=== PATIENT | female | born 1960 | race Caucasian/White ===

== ENCOUNTER 2017-07-20 17:22 | Emergency (ER) | payer OTHER ==
[~2017-07-20] VITALS: Ht 160 cm; Wt 81.7 kg
[~2017-07-20 17:22] MED LIST: ARIP10 PO; ARIP15 PO; ASPI81CH PO; ATOR40TA PO; ATOR80 PO; Arthritis Pain650 M1 PO; Aspirin EC81 MG PO; BENZ100A PO; BISA5EC PO; CHOL10002 PO; CLOP75 PO; CYCL10 PO; Cyclobenzaprine5 MG PO; DOCSEN PO; DOCU100 PO; DULO30 PO; DULO60 PO; Dilantin PO; ERGO400 PO; ESTR2 PO; Estradiol1 MG PO; GABA300 PO; HYDACE10B PO; HYDACE5 PO; HYDACE5325 PO; HYDR1TAB94 PO; IBUP600 PO; IBUP800; LISI20 PO; LISI5 PO; MARIJUANA; MEDR2.5 PO; MEDR5 PO; Mucinex600 MG PO; NAPR220 PO; NAPR250 PO; Norco 5-325 Ta1 EACH PO; Omeprazole20 M1 PO; PHENY100ER PO; Sudogest60 MG PO; Ultram50 MG PO; VITAMIN D32000 UNIT PO; Zithromax250 MG PO
[2017-07-20] MEDS ORDERED: Prednisone20 MG PO (17:41)
[2017-07-20] MEDS ORDERED: Percocet 5-3251 EACH PO (17:41)
[2018-03-04] MEDS ORDERED: Percocet 5-3251 EACH (11:29)
[2018-03-04] MEDS ORDERED: Abilify5 MG (11:30)
== END 2017-07-20 18:07 | disposition home or self-care (01) ==
LOC: ER 17:22
DX: M54.5 Low back pain (principal); G89.29 Other chronic pain; Z79.899 Other long term (current) drug therapy; Z79.82 Long term (current) use of aspirin; Z79.52 Long term (current) use of systemic steroids; Z86.73 Personal history of transient ischemic attack (TIA), and cerebral infarction without residual deficits; Z87.891 Personal history of nicotine dependence
CPT/HCPCS: 96372; 99283; J1885

== ENCOUNTER → 2017-08-13 | Outpatient (CLI) | payer OTHER ==
[~2017-08-13] MED LIST changes: +Percocet 5-3251 EACH PO; +Prednisone20 MG PO
[2017-08-15 13:21] LABS: HPV Genotype 16 Not Detected (NOTDET); HPV Genotype 18 Not Detected (NOTDET)
[2017-08-20 13:05] LABS: HPV High Risk Other Not Detected (NOTDET)
== END | disposition home or self-care (01) ==
LOC: LAB SHORT 16:40 → LAB 16:40
PROVIDERS: Obstetrics & Gynecology Gynecology
DX: Z12.4 Encounter for screening for malignant neoplasm of cervix (principal)
CPT/HCPCS: 87624; G0123

== ENCOUNTER 2017-09-03 08:22 | Emergency (ER) | payer OTHER ==
[~2017-09-03] VITALS: Ht 160 cm; Wt 80.7 kg
== END 2017-09-03 09:08 | disposition home or self-care (01) ==
LOC: ER 08:22
DX: G56.00 Carpal tunnel syndrome, unspecified upper limb (principal); Z79.899 Other long term (current) drug therapy; Z79.82 Long term (current) use of aspirin; Z79.52 Long term (current) use of systemic steroids; Z86.73 Personal history of transient ischemic attack (TIA), and cerebral infarction without residual deficits; F17.210 Nicotine dependence, cigarettes, uncomplicated
CPT/HCPCS: 99281

== ENCOUNTER 2017-11-29 16:35 | Emergency (ER) | payer OTHER ==
[~2017-11-29] VITALS: Ht 162.6 cm; Wt 77.1 kg
[2017-11-29 17:50] LABS: BASOPHILS ABSOLUTE AUTO 0.04 K/mm3 (0.00-0.23); BASOPHILS PERCENT AUTO 0 % (0-2); EOSINOPHILS ABSOLUTE AUTO 0.02 K/mm3 (0.00-0.68); EOSINOPHILS PERCENT AUTO 0 % (0-6); Hematocrit 42.8 % (33.0-51.0); Hemoglobin 14.1 g/dL (11.5-16.0); IMMATURE GRAN ABSOLUTE AUTO 0.04 K/mm3 (0.00-0.10); IMMATURE GRAN PERCENT AUTO 0 % (0-1); LYMPHOCYTES ABSOLUTE AUTO 1.88 K/mm3 (0.84-5.20); LYMPHOCYTES PERCENT AUTO 16 % (21-46); MONOCYTES PERCENT AUTO 11 % (4-13); Mean Corpuscular HGB 30.3 pg (26.0-34.0); Mean Corpuscular HGB Conc 32.9 g/dL (31.5-36.5); Mean Corpuscular Volume 92 fL (80-100); Mean Platelet Volume 9.9 fL (9.1-12.4); NEUTROPHILS ABSOLUTE AUTO 8.55 K/mm3 (1.96-9.15); NEUTROPHILS PERCENT AUTO 72 % (41-73); Platelet Count 404 K/mm3 (150-400); RDW Coefficient Variation 15.1 % (11.7-14.2); RDW Standard Deviation 51.7 fL (35.1-46.3); Red Blood Cell Count 4.65 M/mm3 (3.80-5.20); White Blood Cell Count 11.83 K/mm3 (4.00-11.30)
[2017-11-29 18:10] LABS: Alanine Aminotransfer (ALT/SGP 48 U/L (12-78); Albumin, Blood 3.1 g/dL (3.4-5.0); Albumin/Globulin Ratio 0.9 (0.8-1.8); Alk Phos 117 U/L (50-136); Anion Gap 5 mmol/L (6-16); Aspartate Aminotrans (AST/SGOT 47 U/L (12-37); Bilirubin, Total 0.3 mg/dL (0.1-1.0); Blood Urea Nitrogen 28 mg/dL (8-24); Bun/Creatinine Ratio 17.2 (12.0-20.0); CO2, Blood 30 mmol/L (21-32); Calcium, Blood 8.3 mg/dL (8.5-10.1); Chloride, Blood 105 mmol/L (98-108); Creatinine, Blood 1.63 mg/dL (0.40-1.00); Dilantin (Phenytoin), Total 10.8 ug/mL (10.0-20.0); Ethanol (Alcohol), Blood, Med <3 mg/dL; Globulin, Blood 3.6 g/dL (2.2-4.0); Glomerular Filtration Rate 35 (60-); Glucose, Blood 85 mg/dL (70-99); Potassium, Blood 4.6 mmol/L (3.5-5.5); Sodium, Blood 140 mmol/L (136-145); Total Protein, Blood 6.7 g/dL (6.4-8.2); Troponin I <0.015 ng/mL (0.000-0.040)
== END 2017-11-29 18:29 | disposition home or self-care (01) ==
LOC: ER 16:35
PROVIDERS: Emergency Medicine
DX: E86.0 Dehydration (principal); R55 Syncope and collapse; G40.909 Epilepsy, unspecified, not intractable, without status epilepticus; F17.210 Nicotine dependence, cigarettes, uncomplicated; Z86.73 Personal history of transient ischemic attack (TIA), and cerebral infarction without residual deficits; Z79.899 Other long term (current) drug therapy; Z79.82 Long term (current) use of aspirin
CPT/HCPCS: 36415; 80053; 80185; 83605; 84484; 85025; 93005; 93010; 99284-25; G0480; J7030

== ENCOUNTER 2017-12-02 14:28 | Emergency (ER) | payer OTHER ==
[~2017-12-02] VITALS: Ht 162.6 cm; Wt 68.0 kg
[2017-12-02] MEDS ORDERED: MUPIROCIN15 GM TOP (14:57)
== END 2017-12-02 15:04 | disposition home or self-care (01) ==
LOC: ER 14:28
DX: L60.0 Ingrowing nail (principal); G40.909 Epilepsy, unspecified, not intractable, without status epilepticus; F17.200 Nicotine dependence, unspecified, uncomplicated; Z79.899 Other long term (current) drug therapy; Z79.82 Long term (current) use of aspirin; Z86.73 Personal history of transient ischemic attack (TIA), and cerebral infarction without residual deficits
CPT/HCPCS: 99283

== ENCOUNTER 2018-07-09 10:53 | Emergency (ER) | payer OTHER ==
[~2018-07-09] VITALS: Ht 162.6 cm; Wt 72.6 kg
[~2018-07-09 10:53] MED LIST changes: +Abilify5 MG; +MUPIROCIN15 GM TOP; +Percocet 5-3251 EACH
[2018-07-09 11:41] LABS: BASOPHILS ABSOLUTE AUTO 0.07 K/mm3 (0.00-0.23); BASOPHILS PERCENT AUTO 1 % (0-2); EOSINOPHILS ABSOLUTE AUTO 0.19 K/mm3 (0.00-0.68); EOSINOPHILS PERCENT AUTO 3 % (0-6); Hematocrit 47.2 % (33.0-51.0); Hemoglobin 15.3 g/dL (11.5-16.0); IMMATURE GRAN ABSOLUTE AUTO 0.01 K/mm3 (0.00-0.10); IMMATURE GRAN PERCENT AUTO 0 % (0-1); LYMPHOCYTES ABSOLUTE AUTO 4.34 K/mm3 (0.84-5.20); LYMPHOCYTES PERCENT AUTO 57 % (21-46); MONOCYTES ABSOLUTE AUTO 0.65 K/mm3 (0.16-1.47); MONOCYTES PERCENT AUTO 9 % (4-13); Mean Corpuscular HGB Conc 32.4 g/dL (31.5-36.5); Mean Corpuscular Volume 90 fL (80-100); Mean Platelet Volume 9.3 fL (9.1-12.4); NEUTROPHILS ABSOLUTE AUTO 2.32 K/mm3 (1.96-9.15); NEUTROPHILS PERCENT AUTO 31 % (41-73); Platelet Count 412 K/mm3 (150-400); RDW Coefficient Variation 13.8 % (11.7-14.2); RDW Standard Deviation 45.4 fL (35.1-46.3); Red Blood Cell Count 5.27 M/mm3 (3.80-5.20); White Blood Cell Count 7.58 K/mm3 (4.00-11.30)
[2018-07-09 11:48] LABS: Source, Urine Clean Catch
[2018-07-09 11:52] LABS: Bilirubin, Urine Neg (Neg); Blood, Urine Neg (Neg); Glucose Qualitative, Urine Neg (Neg); Ketones, Urine Neg (Neg); Leukocyte Esterase, Urine Neg (Neg); Nitrite, Urine Neg (Neg); Protein, Urine Neg (Neg); Urobilinogen, Urine NORM (Normal)
[2018-07-09 12:02] LABS: Alanine Aminotransfer (ALT/SGP 33 U/L (12-78); Albumin, Blood 3.3 g/dL (3.4-5.0); Albumin/Globulin Ratio 0.8 (0.8-1.8); Alk Phos 111 U/L (50-136); Anion Gap 4 mmol/L (6-16); Aspartate Aminotrans (AST/SGOT 24 U/L (12-37); Bilirubin, Total 0.2 mg/dL (0.1-1.0); Blood Urea Nitrogen 18 mg/dL (8-24); Bun/Creatinine Ratio 25.4 (12.0-20.0); CO2, Blood 29 mmol/L (21-32); Calcium, Blood 8.6 mg/dL (8.5-10.1); Chloride, Blood 104 mmol/L (98-108); Creatinine, Blood 0.71 mg/dL (0.40-1.00); Dilantin (Phenytoin), Total 20.4 ug/mL (10.0-20.0); Globulin, Blood 3.9 g/dL (2.2-4.0); Glomerular Filtration Rate >60 (60-); Glucose, Blood 83 mg/dL (70-99); Potassium, Blood 4.8 mmol/L (3.5-5.5); Sodium, Blood 137 mmol/L (136-145); Total Protein, Blood 7.2 g/dL (6.4-8.2)
[2018-07-09 12:02] LABS: Appearance, Urine Clear (Clear); Color, Urine Yellow (P-Yellow)
[2018-07-09] MEDS ORDERED: Robaxin500 MG PO (21:15)
== END 2018-07-09 13:00 | disposition home or self-care (01) ==
LOC: ER 10:53
PROVIDERS: Physician Assistant
DX: G89.29 Other chronic pain (principal); M54.5 Low back pain; F17.210 Nicotine dependence, cigarettes, uncomplicated; Z79.899 Other long term (current) drug therapy; Z79.82 Long term (current) use of aspirin; Z79.02 Long term (current) use of antithrombotics/antiplatelets; Z86.73 Personal history of transient ischemic attack (TIA), and cerebral infarction without residual deficits
CPT/HCPCS: 36415; 80053; 80185; 81003; 85025; 96372; 99283-25; J1885

== ENCOUNTER → 2018-08-18 | Outpatient (CLI) | payer OTHER ==
[~2018-08-18] MED LIST changes: +Robaxin500 MG PO
[2018-08-20 15:07] LABS: HPV 16 Negative (Negative); HPV 18 Negative (Negative); HPV OTHER HR TYPES Negative (Negative)
== END | disposition home or self-care (01) ==
LOC: LAB SHORT 19:31 → LAB 19:31
PROVIDERS: Obstetrics & Gynecology Gynecology
DX: Z12.4 Encounter for screening for malignant neoplasm of cervix (principal)
CPT/HCPCS: 87624; G0123

== ENCOUNTER 2019-07-16 13:53 | Emergency (ER) | payer OTHER ==
[~2019-07-16] VITALS: Ht 162.6 cm; Wt 68.0 kg
== END 2019-07-16 15:24 | disposition home or self-care (01) ==
LOC: ER 13:53
DX: S93.401A Sprain of unspecified ligament of right ankle, initial encounter (principal); I10 Essential (primary) hypertension; G40.909 Epilepsy, unspecified, not intractable, without status epilepticus; F17.210 Nicotine dependence, cigarettes, uncomplicated; Z86.73 Personal history of transient ischemic attack (TIA), and cerebral infarction without residual deficits; Z86.718 Personal history of other venous thrombosis and embolism; Z79.82 Long term (current) use of aspirin; Z79.899 Other long term (current) drug therapy; W19.XXXA Unspecified fall, initial encounter
CPT/HCPCS: 73610; 73630; 99283-25

== ENCOUNTER 2020-06-27 10:42 | Day surgery (SDC) | payer OTHER ==
[~2020-06-27] VITALS: Ht 162.6 cm; Wt 69.5 kg
[~2020-06-27 10:42] MED LIST changes: +LEVSOD25 PO; +MIRALAX17 G5 PO; +OMEP20ER PO; +VITAMIN D3-ALO1 EACH PO; +Ventolin/Prove6.7 GM INH
--- NOTE | 2020-06-27 16:00 | NUR ---
left pedal and tibial sites assessed in left foot. Dp site with asmall amount of red blood on hemostasis pad. both sited soft and nontender.
--- NOTE | 2020-06-27 17:00 | NUR ---
PATIENT AMBULATED TO BATHROON. TOLERATED WELL. LEFT FOOT SITES UNCHANGED. PATIENT STATES THAT HER FOOT FEELS FINE.
--- NOTE | 2020-06-27 17:18 | NUR ---
PATIENT VERBALIZED UNDERSTANDING OF DISCHARGE INSTRUCTIONS AND PRECAUTION. DRESSINGS X2 TO LEFT FOOT INTACT. NO SWELLING OR BRUISING OR BLEEDING. PATIENT DENIES PAIN. PATIENT TRANSFERRED TO CAR VIA WHEELCHAIR FOR RIDE HOME.
== END 2020-06-27 23:45 | disposition home or self-care (01) ==
LOC: MHTC 10:42
DX: I70.213 Atherosclerosis of native arteries of extremities with intermittent claudication, bilateral legs (principal); I10 Essential (primary) hypertension; Z20.822 Contact with and (suspected) exposure to COVID-19
CPT/HCPCS: 37228; 37232; 76937; 99152; 99153; C1725; C1769; C1887; C1894; J1644; J2250; J3010; J7030; J7050; Q9967; U0004

== ENCOUNTER 2020-07-20 08:29 | Emergency (ER) | payer OTHER ==
[~2020-07-20] VITALS: Ht 162.6 cm; Wt 72.6 kg
[2020-07-20] MEDS ORDERED: Norco 5-325 Ta1 EACH PO (11:04)
== END 2020-07-20 11:37 | disposition home or self-care (01) ==
LOC: ER 08:29
DX: M25.561 Pain in right knee (principal); M25.571 Pain in right ankle and joints of right foot; I10 Essential (primary) hypertension; G40.909 Epilepsy, unspecified, not intractable, without status epilepticus; I69.351 Hemiplegia and hemiparesis following cerebral infarction affecting right dominant side; F17.210 Nicotine dependence, cigarettes, uncomplicated; Z88.6 Allergy status to analgesic agent; Z79.02 Long term (current) use of antithrombotics/antiplatelets; Z79.899 Other long term (current) drug therapy; Z86.718 Personal history of other venous thrombosis and embolism; W10.9XXA Fall (on) (from) unspecified stairs and steps, initial encounter
CPT/HCPCS: 73564; 73610; 99283-25

== ENCOUNTER 2021-04-23 17:31 | Emergency (ER) | payer OTHER ==
[~2021-04-23] VITALS: Ht 162.6 cm; Wt 76.2 kg
[2021-04-23 18:04] LABS: BASOPHILS ABSOLUTE AUTO 0.07 K/mm3 (0.00-0.23); BASOPHILS PERCENT AUTO 1 % (0-2); EOSINOPHILS ABSOLUTE AUTO 0.06 K/mm3 (0.00-0.68); EOSINOPHILS PERCENT AUTO 0 % (0-6); Hematocrit 51.2 % (33.0-51.0); Hemoglobin 17.1 g/dL (11.5-16.0); IMMATURE GRAN ABSOLUTE AUTO 0.06 K/mm3 (0.00-0.10); IMMATURE GRAN PERCENT AUTO 0 % (0-1); LYMPHOCYTES ABSOLUTE AUTO 3.66 K/mm3 (0.84-5.20); LYMPHOCYTES PERCENT AUTO 24 % (21-46); MONOCYTES PERCENT AUTO 12 % (4-13); Mean Corpuscular HGB 29.5 pg (26.0-34.0); Mean Corpuscular HGB Conc 33.4 g/dL (31.5-36.5); Mean Corpuscular Volume 88 fL (80-100); Mean Platelet Volume 9.9 fL (9.1-12.4); NEUTROPHILS ABSOLUTE AUTO 9.82 K/mm3 (1.96-9.15); NEUTROPHILS PERCENT AUTO 63 % (41-73); Platelet Count 371 K/mm3 (150-400); RDW Coefficient Variation 14.2 % (11.7-14.2); RDW Standard Deviation 45.8 fL (35.1-46.3); Red Blood Cell Count 5.79 M/mm3 (3.80-5.20); White Blood Cell Count 15.47 K/mm3 (4.00-11.30)
[2021-04-23 20:48] LABS: Alanine Aminotransfer (ALT/SGP 38 U/L (12-78); Albumin, Blood 2.6 g/dL (3.4-5.0); Albumin/Globulin Ratio 0.6 (0.8-1.8); Alk Phos 141 U/L (50-136); Anion Gap 7 mmol/L (6-16); Aspartate Aminotrans (AST/SGOT 32 U/L (12-37); Bilirubin, Total 0.5 mg/dL (0.1-1.0); Blood Urea Nitrogen 15 mg/dL (8-24); Bun/Creatinine Ratio 19.7 (12.0-20.0); CO2, Blood 29 mmol/L (21-32); Calcium, Blood 9.5 mg/dL (8.5-10.1); Chloride, Blood 103 mmol/L (98-108); Creatinine, Blood 0.76 mg/dL (0.40-1.00); Globulin, Blood 4.4 g/dL (2.2-4.0); Glomerular Filtration Rate >60 (60-); Glucose, Blood 107 mg/dL (70-99); Potassium, Blood 3.7 mmol/L (3.5-5.5); Sodium, Blood 139 mmol/L (136-145)
== END 2021-04-24 00:08 | disposition home or self-care (01) ==
LOC: ER 17:31
PROVIDERS: Physician Assistant
DX: M25.511 Pain in right shoulder (principal); R07.81 Pleurodynia; R10.11 Right upper quadrant pain; I10 Essential (primary) hypertension; Z79.899 Other long term (current) drug therapy; F17.210 Nicotine dependence, cigarettes, uncomplicated
CPT/HCPCS: 36415; 70450; 70496; 70498; 71101; 76705; 80053; 83690; 85025; 99284-25; Q9967

== ENCOUNTER 2021-12-05 10:32 | Inpatient (IN) | payer OTHER ==
[~2021-12-05] VITALS: Ht 162.6 cm; Wt 77.7 kg
[~2021-12-05 10:32] MED LIST changes: +PHENYTOIN SODI PO; +XARELTO20 MG PO
[2021-12-05 11:35] LABS: BASOPHILS ABSOLUTE AUTO 0.09 K/mm3 (0.00-0.23); BASOPHILS PERCENT AUTO 1 % (0-2); EOSINOPHILS ABSOLUTE AUTO 0.09 K/mm3 (0.00-0.68); EOSINOPHILS PERCENT AUTO 1 % (0-6); Hemoglobin 17.7 g/dL (11.5-16.0); IMMATURE GRAN ABSOLUTE AUTO 0.02 K/mm3 (0.00-0.10); IMMATURE GRAN PERCENT AUTO 0 % (0-1); LYMPHOCYTES ABSOLUTE AUTO 3.25 K/mm3 (0.84-5.20); LYMPHOCYTES PERCENT AUTO 38 % (21-46); MONOCYTES ABSOLUTE AUTO 0.83 K/mm3 (0.16-1.47); MONOCYTES PERCENT AUTO 10 % (4-13); Mean Corpuscular HGB 28.4 pg (26.0-34.0); Mean Corpuscular HGB Conc 30.9 g/dL (31.5-36.5); Mean Corpuscular Volume 92 fL (80-100); Mean Platelet Volume 9.6 fL (9.1-12.4); NEUTROPHILS ABSOLUTE AUTO 4.38 K/mm3 (1.96-9.15); NEUTROPHILS PERCENT AUTO 51 % (41-73); Platelet Count 361 K/mm3 (150-400); RDW Coefficient Variation 15.8 % (11.7-14.2); RDW Standard Deviation 50.4 fL (35.1-46.3); Red Blood Cell Count 6.24 M/mm3 (3.80-5.20); White Blood Cell Count 8.66 K/mm3 (4.00-11.30)
[2021-12-05 11:46] LABS: Hematocrit 57.2 % (33.0-51.0)
[2021-12-05 11:50] LABS: Albumin, Blood 2.8 g/dL (3.4-5.0); Albumin/Globulin Ratio 0.7 (0.8-1.8); Bilirubin, Total 0.3 mg/dL (0.1-1.0); Bun/Creatinine Ratio 13.8 (12.0-20.0); Calcium, Blood 9.4 mg/dL (8.5-10.1); Creatinine, Blood 0.8 mg/dL (0.40-1.00); Globulin, Blood 4.3 g/dL (2.2-4.0); Potassium, Blood 4.3 mmol/L (3.5-5.5); Total Protein, Blood 7.1 g/dL (6.4-8.2)
[2021-12-05 12:19] LABS: Influenza A, PCR NEGATIVE (NEGATIVE); Influenza B, PCR NEGATIVE (NEGATIVE); Resp Syncytial Virus, PCR NEGATIVE (NEGATIVE); SARS-Cov-2 (COVID-19) PCR, MMC NEGATIVE (NEGATIVE)
[2021-12-05 13:42] LABS: Source, Urine Straight Cath
[2021-12-05 13:50] LABS: Bilirubin, Urine Neg (Neg); Blood, Urine Neg (Neg); Color, Urine Yellow (P-Yellow); Glucose Qualitative, Urine Neg (Neg); Ketones, Urine Neg (Neg); Leukocyte Esterase, Urine Neg (Neg); Nitrite, Urine Neg (Neg); Protein, Urine Neg (Neg); Specific Gravity, Urine 1.015 (1.003-1.022); Urobilinogen, Urine NORM (Normal)
[2021-12-05 13:53] LABS: Base Excess Venous 13.7 mmol/L; Bicarbonate Venous 32.7 mmol/L (24.0-30.0); PCO2 Venous 84.8 mmHg (38-42); pH Blood Venous 7.29 (7.34-7.37)
[2021-12-05 14:08] LABS: Appearance, Urine Clear (Clear)
[2021-12-05 16:47] LABS: Base Excess Venous 13.8 mmol/L; pH Blood Venous 7.28 (7.34-7.37)
[2021-12-05] MEDS ORDERED: ABILIFY MYCITE15 M2 PO (17:03)
[2021-12-05] MEDS ORDERED: CLOP75 PO (17:04)
[2021-12-05] MEDS ORDERED: PANT20 PO (17:04)
[2021-12-05] MEDS ORDERED: DOCU100 PO (17:05)
[2021-12-05] MEDS ORDERED: LEVSOD100 PO (17:07)
[2021-12-05] MEDS ORDERED: LISI20 PO (17:08)
[2021-12-05] MEDS ORDERED: Inderal40 MG PO (17:09)
--- NOTE | 2021-12-05 17:11 | NUR ---
SHIFT SUMMARY: PATIENT CAME UP FROM ER TODAY 12/05/21 AT 1550. COPD EXACERBATION PATIENT IS A&OX3-4. PATIENT CAME UP FROM ER WITH BIPAP ON. AFTER MOVING HER AROUND PATIENT BECAME MORE AWAKE AND STATED "I CAN'T BREATHE WITH THIS MASK ON!". PATIENT WAS SWITCHED TO 5L NC OF OXYGEN FOR A SHORT BREAK TO DRINK WATER. DENIES FEELING SOB OR CHEST PAIN. PATIENT REPORTS "I FEEL MORE WEAK ON MY RIGHT SIDE THAN USUAL". PATIENT HAS RIGHT SIDED WEAKNESS FROM CVA'S X5. PATIENT IS ON TELE WITH SINUS AT 93 BPM. PATIENT CAN TOLERATE PO INTAKE. PATIENT DID MENTION SHE HAS NOT HAD A BM FOR 5 DAYS AND HAS CONSTIPATION CHRONICALLY. POWERGLIDE IS IN PLACE ON HER LEFT UPPER ARM THAT DRAWS BLOOD AND IS WNL. FAMILY AT BEDSIDE. CALL LIGHT WITHIN REACH.
--- NOTE | 2021-12-05 19:40 | NUR ---
CARE ASSUMPTION: PATIENT ASLEEP IN BED WITH BIPAP IN PLACE O2 SATS >95%. EX- SHANNAN AT BEDSIDE. BEDSIDE REPORT FROM BAMBI RIOS. BED LOW WITH CALL LIGHT IN REACH.
[2021-12-05 23:53] LABS: Base Excess Venous 15.1 mmol/L; PCO2 Venous 79.3 mmHg (38-42); pH Blood Venous 7.32 (7.34-7.37)
[2021-12-06 02:15] LABS: PCO2 Venous 68.9 mmHg (38-42); pH Blood Venous 7.37 (7.34-7.37)
[2021-12-06 02:16] LABS: Base Excess Venous 14.7 mmol/L; Bicarbonate Venous 34.5 mmol/L (24.0-30.0)
[2021-12-06 02:17] LABS: Hematocrit 52.1 % (33.0-51.0); Hemoglobin 16.2 g/dL (11.5-16.0); Mean Corpuscular HGB 28.5 pg (26.0-34.0); Mean Corpuscular HGB Conc 31.1 g/dL (31.5-36.5); Mean Corpuscular Volume 92 fL (80-100); Mean Platelet Volume 9.7 fL (9.1-12.4); Platelet Count 325 K/mm3 (150-400); RDW Coefficient Variation 14.9 % (11.7-14.2); RDW Standard Deviation 49.5 fL (35.1-46.3); Red Blood Cell Count 5.68 M/mm3 (3.80-5.20); White Blood Cell Count 7.73 K/mm3 (4.00-11.30)
[2021-12-06 02:34] LABS: Bun/Creatinine Ratio 18.6 (12.0-20.0); Calcium, Blood 8.8 mg/dL (8.5-10.1); Creatinine, Blood 1.02 mg/dL (0.40-1.00); Potassium, Blood 4.8 mmol/L (3.5-5.5)
--- NOTE | 2021-12-06 04:59 | NUR ---
SHIFT SUMMARY: PATIENT KEPT BIPAP IN PLACE T/O SHIFT TO THIS TIME. PH IMPROVED FROM 7.28 AT BEGINNING OF SHIFT TO 7.37 AFTER RT CHANGED BIPAP SETTINGS TO 18/5L. VS WNL WITH BIPAP IN PLACE. A&O X2. MEDICATED PER EMAR. RIGHT-SIDED WEAKNESS PATIENT'S BASELINE. JUNO POWERGLIDE DRAWS AND FLUSHES WELL. PATIENT DENIES CHEST PAIN, SOB, N/V. NO ADVERSE EVENTS AT THIS TIME. BED LOW WITH CALL LIGHT IN REACH. WILL CONTINUE TO MONITOR AND REPORT TO ONCOMING RN.
[2021-12-06] MEDS ORDERED: PHENY100ER PO (07:56)
--- NOTE | 2021-12-06 12:30 | NUR ---
Update: VSS. Patient has been OOB. She was able to take a shower with minimal assistance. PT came to work with her, recommeded she walk with a 4 wheel walker. Consult called to Dr. Johnson office, PA came to see the patient. No plans for intervention while she is in the hosptial-pt has a follow up appointment scheduled for friday. Pts states her weakness is getting better. Patient denies other needs at this time. Call light in reach, bed alarm on for safety.
--- NOTE | 2021-12-06 16:07 | NUR ---
Update: Assessment unchaged. VSS. Patient C/O indigestion, 2 tums given per MD order. Patient is resting comfortably in bed at this time. Call light in reach. Bed alarm on for safety.
--- NOTE | 2021-12-06 17:40 | NUR ---
Summary: Patient is here for COPD Exacerbation. She is alert and oriented. She has a history of multiple CVAs she has some residual right sided weakness and expressive aphasia. HRR SR-ST 90s to low 100s. LS DIM T/O with expiratory wheezing and a coarse PC with thick light green sputm. Biox has been 93-95% on 3L via NC, however this evening I had to turn her up to 5l-biox is 90-92%. BT+, pt did have a bowel movement this shift. She has been ambulating with SBA with FWW to BR. Chalino Almaraz came and evaluated the patient for her chronic PVD-plan is to keep her previously scheduled appointment for next friday. Patient is currently resting comfortably in bed with bed alarm on for safety. Call light in reach. Will report to oncoming RN.
--- NOTE | 2021-12-07 06:09 | NUR ---
PT WAS WEANED FROM 5 LPM TO 3 LPM NASAL CANNULA WHILE AWAKE. SpO2 VALUES DO DROP INTO THE LOW TO MID 80 PERCENTILE RANGE WITH SLEEP. RT ADVISED AND BIPAP WAS PLACED ON PATIENT FOR SECOND NIGHT IN A ROW. EDUCATION PROVIDED REGARDING NEW MEDICATION WELLBUTRIN. PT HAS A DESIRE TO QUIT SMOKING SHE IS CURRENTLY SMOKING MUCH 2 PACKS PER DAY. HISTORY OF MULTIPLE STROKE WITH RESIDUAL RIGHT SIDE WEAKNESS AND EXPRESSIVE APHASIA. PT COMMUNICATES USING JUST A FEW WORDS AT A TIME AND IS ABLE TO MAKE HER NEEDS KNOWN. SHE DOES HAVE SOME WORD FINDING DIFFICULTY AND IS DIFFICULT TO UNDERSTAND AT TIMES. AMBULATING TO THE BATHROOM WITH USE OF GAIT BELT AND FRONT WHEEL WALKER.
--- NOTE | 2021-12-07 09:58 | NUR ---
CARE ASSUMPTION THIS RN ASSUMED CARE FROM JORGE LACY AT 0700. VSS. TELE SR 80. PATIENT IS ALERT AND ORIENTED TO SELF, PLACE, SURROUNDINGS, TIME OF DAY, BUT WAS UNABLE TO SAY THE YEAR, BUT KNEW IT WAS FRIDAY AND THE MONTH WAS NOVEMBER, UNSURE OF THE DATE. PERRLA. EXPRESSIVE APHASIA, WHICH IS PATIENT BASELINE. PATIENT HAS RIGHT SIDED WEAKNESS FROM PERVIOUS CVA. PATIENT IS IMPULSIVE. WILL TRY TO GET OUT OF BED AND NEEDS REMINDERS TO USE CALL LIGHT. IS A STAND BY ASSIST. PATIENT REPROTS NO PAIN. PATIENT REPROTS NO CHEST PAIN/PRESSURE. FAINT RADIAL PULSES. DOOPLER FOR TIBIAL PULSES BILATERALLY. ABSENT DOOPLER PULSE ON LEFT PEDIS, BUT CAN FIND RIGHT PEDIS PULSE WITH DOOPLER. PATIENT HAS AN OUT PATIENT APPOINTMENT ALREADY FOR DECEMBER 10 THAT WAS SCHEDULED PRIOR TO THIS HOSPITALIZATION. PATIENT REPROTS NO SHORTNESS OF BREATH. COARSE EXPIRATORY WHEEZE UPPER LOBES. 5L NC SPO2 >90%. PRODUCTIVE HARSH COUGH WITH THICK YELLOW SECRETIONS. PATIENT ABD IS SOFT NONTENDER AND ACTIVE. PATIENT IS ABLE TO VOID. SKIN IS CLEAN DRY AND INTACT. SEE SHIFT ASSESSMENT FOR FURTHER DETAILS. THIS RN AND JENNIFER AVERY WENT INTO PATIENT ROOM DUE TO HEARING YELLING. PATIENT WAS YELLING AT EX AND HE WAS YELLING ABCK. PATIENT YELLING "BITCH" AND EX STATED SHE STARTED TO REMOVE HER GOWN TO CHANGE AND THAT HE TOLD HER SHE HAD TO WAIT FOR ASSISTANCE. THIS RN ASKED THE EX TO STEP OUT SO THE PATIENT AND EX COULD CALM DOWN. THIS RN AND GENA RODRIGUEZ HELPED THE PATIENT CHANGE GOWNS. THIS RN PROVIDED THERAPUETIC COMMUNICATION AND ACTIVE LISTENING TO DETERMINE WHAT HAPPENED. PATIENT KEPT REPATING "BITCH" AND WAS UNABLE TO DETERMINE WHAT CAUSED THE ARGUMENT. EX CAME BACK INTO THE ROOM AFTER HALF HOUR AND BOTH PATIENT AND MORE CALM. PATIENT IS A STAND BY ASSIST TO THE BATHROOM. PLAN OF CARE UP TO DATE AT THIS TIME AND PATIENT AND PATIENT EX EDUCATED ON IT. CALL LIGHT WITHIN REACH AND BED IN LOWEST POSITION.
--- NOTE | 2021-12-07 12:52 | NUR ---
UPDATE PLAN IS FOR PATIENT TO DISCHARGE TODAY DUE TO PATIENT WANTING TO GO HOME. HOME O2 EVAL DONE AND PATIENT NEEDS 3L NC AT REST AND WITH ACTIVITY. THIS RN INFORMED MD BUTLER AND INFORMED CLINICAL TRANSPLANT COORDINATOR AND MACHINE PACKAGER. AWAITING DISCHARGE ORDERS.
[2021-12-07] MEDS ORDERED: GUAI600T33 PO (14:04)
[2021-12-07] MEDS ORDERED: IPRAT-ALBUT 0.5-3 ML INH (14:04)
[2021-12-07] MEDS ORDERED: NICO21TP TOP (14:05)
[2021-12-07] MEDS ORDERED: FLUTICASONE-SA1 EAC1 INH (14:06)
[2021-12-07] MEDS ORDERED: AZIT500 PO (14:06)
[2021-12-07] MEDS ORDERED: PRED1 PO (14:07)
--- NOTE | 2021-12-07 14:39 | NUR ---
DISCHARGE EDUCATION THIS RN WENT OVER DSICHARGE EDUCATION WITH THE PATIENT. THIS RN WENT OVER NEW MEDICATIONS THE PATIENT WOULD BE TAKING. THIS RN WENT OVER THE ANTIBIOTIC THE PATIENT WILL BE TAKING AND THE IMPROTANCE OF COMPLETING THE ENTIRE COURSE EVEN IF FEELING BETTER. THIS RN WENT OVER THE IMPORTANCE OF FOLLOW UP APPOINTMENTS WITH PRIMARY CARE PROVIDER AND APOINTMENTS THAT WERE PRIOR MADE. PATIENT AND PATIENT VERBALIZED UNDERSTANDING. DEMARN HAS ALL BELONGINGS GATHERED WITH THEM WHEN LEAVING THE UNIT. PATIENT IS IN NO DISTRESS WHEN LEAVING THE UNIT.
== END 2021-12-07 14:45 | disposition home or self-care (01) | DRG 189 ==
LOC: ER 10:32 → PCU 15:26 → SURS 15:26 → PCU 15:49
PROVIDERS: Family Medicine; Nurse Practitioner Acute Care; Physician Assistant; Student in an Organized Health Care Education/Training Program; ADMIT Internal Medicine
PROC: 5A09357 Assistance with Respiratory Ventilation, Less than 24 Consecutive Hours, Continuous Positive Airway Pressure (ICD-10-PCS; principal; 2021-12-05)
DX: J96.01 Acute respiratory failure with hypoxia (principal); J44.1 Chronic obstructive pulmonary disease with (acute) exacerbation; I69.351 Hemiplegia and hemiparesis following cerebral infarction affecting right dominant side; E87.2 Acidosis; Z20.822 Contact with and (suspected) exposure to COVID-19; I73.9 Peripheral vascular disease, unspecified; J96.02 Acute respiratory failure with hypercapnia; I10 Essential (primary) hypertension; K21.9 Gastro-esophageal reflux disease without esophagitis; F32.A Depression, unspecified; F17.210 Nicotine dependence, cigarettes, uncomplicated; Z71.6 Tobacco abuse counseling; G40.909 Epilepsy, unspecified, not intractable, without status epilepticus; Z86.718 Personal history of other venous thrombosis and embolism; Z98.51 Tubal ligation status; Z90.49 Acquired absence of other specified parts of digestive tract; Z90.89 Acquired absence of other organs; Z98.890 Other specified postprocedural states; Z88.8 Allergy status to other drugs, medicaments and biological substances; Z79.82 Long term (current) use of aspirin; Z79.899 Other long term (current) drug therapy
CPT/HCPCS: 0241U; 36415; 70450; 71045; 80048; 80053; 81003; 82803; 83735; 83880; 84145; 85025; 85027; 93005; 93010; 94640; 94644; 94660; 94664; 94762; 96374; 97116; 97162; 99285-25; A9270; C1751; J0696; J1650; J2060; J2405; J2930; J7030; J7512

== ENCOUNTER 2021-12-25 09:50 | Emergency (ER) | payer OTHER ==
[~2021-12-25] VITALS: Ht 162.6 cm; Wt 77.1 kg
[~2021-12-25 09:50] MED LIST changes: +ABILIFY MYCITE15 M2 PO; +AZIT500 PO; +FLUTICASONE-SA1 EAC1 INH; +GUAI600T33 PO; +IPRAT-ALBUT 0.5-3 ML INH; +Inderal40 MG PO; +LEVSOD100 PO; +NICO21TP TOP; +PANT20 PO; +PRED1 PO
[2021-12-25 10:46] LABS: BASOPHILS ABSOLUTE AUTO 0.08 K/mm3 (0.00-0.23); BASOPHILS PERCENT AUTO 1 % (0-2); EOSINOPHILS ABSOLUTE AUTO 0.21 K/mm3 (0.00-0.68); EOSINOPHILS PERCENT AUTO 2 % (0-6); Hematocrit 44.6 % (33.0-51.0); IMMATURE GRAN ABSOLUTE AUTO 0.02 K/mm3 (0.00-0.10); IMMATURE GRAN PERCENT AUTO 0 % (0-1); LYMPHOCYTES ABSOLUTE AUTO 3.06 K/mm3 (0.84-5.20); LYMPHOCYTES PERCENT AUTO 30 % (21-46); MONOCYTES PERCENT AUTO 11 % (4-13); Mean Corpuscular HGB 28.3 pg (26.0-34.0); Mean Corpuscular HGB Conc 31.4 g/dL (31.5-36.5); Mean Corpuscular Volume 90 fL (80-100); Mean Platelet Volume 9.9 fL (9.1-12.4); NEUTROPHILS ABSOLUTE AUTO 5.72 K/mm3 (1.96-9.15); NEUTROPHILS PERCENT AUTO 56 % (41-73); Platelet Count 366 K/mm3 (150-400); RDW Coefficient Variation 14.8 % (11.7-14.2); RDW Standard Deviation 48.9 fL (35.1-46.3); Red Blood Cell Count 4.95 M/mm3 (3.80-5.20); White Blood Cell Count 10.19 K/mm3 (4.00-11.30)
[2021-12-25 10:52] LABS: Source, Urine Clean Catch
[2021-12-25 10:56] LABS: Appearance, Urine Clear (Clear); Bilirubin, Urine Neg (Neg); Blood, Urine Neg (Neg); Color, Urine Yellow (P-Yellow); Glucose Qualitative, Urine Neg (Neg); Ketones, Urine Neg (Neg); Leukocyte Esterase, Urine Neg (Neg); Nitrite, Urine Neg (Neg); Protein, Urine Neg (Neg); Urobilinogen, Urine NORM (Normal)
[2021-12-25 11:07] LABS: Albumin, Blood 2.9 g/dL (3.4-5.0); Albumin/Globulin Ratio 0.7 (0.8-1.8); Bilirubin, Total 0.4 mg/dL (0.1-1.0); Bun/Creatinine Ratio 32.7 (12.0-20.0); Calcium, Blood 9.6 mg/dL (8.5-10.1); Creatinine, Blood 0.7 mg/dL (0.40-1.00); Globulin, Blood 4.1 g/dL (2.2-4.0); Potassium, Blood 4.6 mmol/L (3.5-5.5)
== END 2021-12-25 12:35 | disposition home or self-care (01) ==
LOC: ER 09:50
PROVIDERS: Emergency Medicine; Physician Assistant
DX: S30.1XXA Contusion of abdominal wall, initial encounter (principal); I10 Essential (primary) hypertension; F17.210 Nicotine dependence, cigarettes, uncomplicated; W19.XXXA Unspecified fall, initial encounter; Z86.73 Personal history of transient ischemic attack (TIA), and cerebral infarction without residual deficits; Z88.6 Allergy status to analgesic agent; Z79.899 Other long term (current) drug therapy; Z79.01 Long term (current) use of anticoagulants; Z79.52 Long term (current) use of systemic steroids
CPT/HCPCS: 36415; 71045; 74177; 80053; 81003; 85025; A9270; Q9967

== ENCOUNTER 2022-07-18 09:06 | Emergency (ER) | payer OTHER ==
[~2022-07-18] VITALS: Ht 162.6 cm; Wt 90.7 kg
[~2022-07-18 09:06] MED LIST changes: +ASPIR 8181 M1 PO
[2022-07-18] MEDS ORDERED: OXAYDO5 M1 PO (11:40)
== END 2022-07-18 12:20 | disposition home or self-care (01) ==
LOC: ER 09:06
DX: I73.9 Peripheral vascular disease, unspecified (principal); R60.0 Localized edema; I10 Essential (primary) hypertension; F17.210 Nicotine dependence, cigarettes, uncomplicated; Z79.899 Other long term (current) drug therapy; Z79.82 Long term (current) use of aspirin; Z88.6 Allergy status to analgesic agent
CPT/HCPCS: 93926; 96372; 99283-25; A9270; J1170

== ENCOUNTER 2023-11-18 11:26 | Inpatient (IN) | payer OTHER ==
[~2023-11-18] VITALS: Ht 162.6 cm; Wt 81.2 kg
[~2023-11-18 11:26] MED LIST changes: +Amoxicillin875 MG PO; +OXAYDO5 M1 PO
[2023-11-18 12:04] LABS: BASOPHILS ABSOLUTE AUTO 0.04 K/mm3 (0.00-0.23); BASOPHILS PERCENT AUTO 0 % (0-2); EOSINOPHILS ABSOLUTE AUTO 0.14 K/mm3 (0.00-0.68); EOSINOPHILS PERCENT AUTO 2 % (0-6); Hematocrit 47.7 % (33.0-51.0); Hemoglobin 14.7 g/dL (11.5-16.0); IMMATURE GRAN ABSOLUTE AUTO 0.05 K/mm3 (0.00-0.10); IMMATURE GRAN PERCENT AUTO 1 % (0-1); LYMPHOCYTES ABSOLUTE AUTO 2.46 K/mm3 (0.84-5.20); LYMPHOCYTES PERCENT AUTO 27 % (21-46); MONOCYTES ABSOLUTE AUTO 1.13 K/mm3 (0.16-1.47); MONOCYTES PERCENT AUTO 12 % (4-13); Mean Corpuscular HGB 29.2 pg (26.0-34.0); Mean Corpuscular HGB Conc 30.8 g/dL (31.5-36.5); Mean Corpuscular Volume 95 fL (80-100); Mean Platelet Volume 9.5 fL (9.1-12.4); NEUTROPHILS ABSOLUTE AUTO 5.44 K/mm3 (1.96-9.15); NEUTROPHILS PERCENT AUTO 59 % (41-73); Platelet Count 485 K/mm3 (150-400); RDW Coefficient Variation 14.2 % (11.7-14.2); RDW Standard Deviation 49.4 fL (35.1-46.3); Red Blood Cell Count 5.04 M/mm3 (3.80-5.20); White Blood Cell Count 9.26 K/mm3 (4.00-11.30)
[2023-11-18] MEDS ORDERED: Ipratropium/Albuterol SulF 2.5-0.5MG/3 ML Amp INH ONE (12:15)
[2023-11-18 12:55] LABS: Albumin, Blood 2.5 g/dL (3.4-5.0); Albumin/Globulin Ratio 0.5 (0.8-1.8); Bilirubin, Total 0.1 mg/dL (0.1-1.0); Bun/Creatinine Ratio 27.7 (12.0-20.0); Creatinine, Blood 1.48 mg/dL (0.40-1.00); Globulin, Blood 4.9 g/dL (2.2-4.0); Total Protein, Blood 7.4 g/dL (6.4-8.2)
[2023-11-18 13:09] LABS: Bicarbonate Venous 33.2 mmol/L (24.0-30.0); PCO2 Venous 75.5 mmHg (38-42)
[2023-11-18 13:10] LABS: Base Excess Venous 12.8 mmol/L
[2023-11-18] MEDS ORDERED: Albuterol 2.5 MG/3 ML VIAL INH SCH (13:25)
[2023-11-18] MEDS ORDERED: Azithromycin 250 MG Tab PO ONE (13:25)
[2023-11-18] MEDS ORDERED: PredniSONE 20 MG Tab PO ONE (13:25)
[2023-11-18] MEDS ORDERED: NS 1,000 ML IV SCH (13:30)
[2023-11-18 13:31] LABS: Influenza A, PCR NEGATIVE (NEGATIVE); Influenza B, PCR NEGATIVE (NEGATIVE); Resp Syncytial Virus, PCR NEGATIVE (NEGATIVE); SARS-Cov-2 (COVID-19) PCR, MMC NEGATIVE (NEGATIVE)
[2023-11-18 15:48] LABS: pH Blood Venous 7.23 (7.34-7.37)
[2023-11-18 15:49] LABS: Base Excess Venous 6.6 mmol/L; Bicarbonate Venous 27.5 mmol/L (24.0-30.0); PCO2 Venous 81.7 mmHg (38-42)
[2023-11-18] MEDS ORDERED: Tiotropium Bromide 2.5 MCG/ACT MIST INHAL (10 ACT/4 GM) INH SCH (16:05)
[2023-11-18] MEDS ORDERED: Albuterol 2.5 MG/3 ML VIAL INH PRN (16:05)
[2023-11-18] MEDS ORDERED: Ipratropium/Albuterol SulF 2.5-0.5MG/3 ML Amp INH PRN (16:10)
[2023-11-18] MEDS ORDERED: Mometasone/Formoterol MDI 200/5 mcg 13 GM INH SCH (16:15)
[2023-11-18] MEDS ORDERED: Magnesium Sulf 2 GM/Water 50ML 50 ML IV ONE (16:15)
[2023-11-18] MEDS ORDERED: CefTRIAXone Sodium 1,000 MG in NS 100 ML IV SCH (16:30)
[2023-11-18] MEDS ORDERED: Acetaminophen 325 MG TABLET PO PRN (16:35)
[2023-11-18] MEDS ORDERED: Lansoprazole 15 MG TAB.RAP.DR PO SCH (17:00)
[2023-11-18] MEDS ORDERED: Lisinopril 20 MG Tab PO SCH (17:00)
[2023-11-18] MEDS ORDERED: MethylPREDNISolone Sod Succ 125 MG Vial IV SCH (18:00)
[2023-11-18 18:33] VITALS: BP 115/77
[2023-11-18 20:01] VITALS: BP 115/60
[2023-11-18] MEDS ORDERED: Gabapentin 300 MG Cap PO SCH (21:00)
[2023-11-18] MEDS ORDERED: Rivaroxaban 2.5 MG TABLET PO SCH (21:00)
--- NOTE | 2023-11-18 21:32 | NUR ---
PT IS ALERT AND ORIENTED TO PERSON AND PLACE. PT'S SPEECH CONFUSED AT TIMES, APHASIA. PT HAS HX OF CVA AND HAS R SIDE WEAKNESS. PT ON 6L NC AND MAINTAINING 02 SATURATION AROUND 90%, HX COPD. SHE DENIES SOB. OCCASIONAL CONGESTED COUGH. HR ST, 100'S-110'S, SHE DENIES CHEST PAIN/PRESSURE. NO EDEMA NOTED. PW IN PLACE, DAY SHIFT NOTED PT DESATS W/MOVEMENT AND DIFFICULT FOR PT TO RECOVER. BED ALARM SET FOR SAFETY. PT RESTING IN BED WITH UNLABORED AND EVEN BREATHING. CALL LIGHT WITHIN REACH.
[2023-11-18 23:07] VITALS: BP 98/70
[2023-11-19 04:00] LABS: BASOPHILS ABSOLUTE AUTO 0.02 K/mm3 (0.00-0.23); BASOPHILS PERCENT AUTO 0 % (0-2); EOSINOPHILS PERCENT AUTO 0 % (0-6); Hematocrit 47.3 % (33.0-51.0); Hemoglobin 14.2 g/dL (11.5-16.0); IMMATURE GRAN ABSOLUTE AUTO 0.05 K/mm3 (0.00-0.10); IMMATURE GRAN PERCENT AUTO 1 % (0-1); LYMPHOCYTES ABSOLUTE AUTO 1.05 K/mm3 (0.84-5.20); LYMPHOCYTES PERCENT AUTO 15 % (21-46); MONOCYTES ABSOLUTE AUTO 0.17 K/mm3 (0.16-1.47); MONOCYTES PERCENT AUTO 3 % (4-13); Mean Corpuscular HGB 29.3 pg (26.0-34.0); Mean Corpuscular Volume 98 fL (80-100); Mean Platelet Volume 9.5 fL (9.1-12.4); NEUTROPHILS ABSOLUTE AUTO 5.64 K/mm3 (1.96-9.15); NEUTROPHILS PERCENT AUTO 81 % (41-73); Platelet Count 436 K/mm3 (150-400); RDW Coefficient Variation 14.2 % (11.7-14.2); RDW Standard Deviation 51.4 fL (35.1-46.3); Red Blood Cell Count 4.84 M/mm3 (3.80-5.20); White Blood Cell Count 6.93 K/mm3 (4.00-11.30)
[2023-11-19 04:13] VITALS: BP 93/61
[2023-11-19 04:23] LABS: Bun/Creatinine Ratio 30.3 (12.0-20.0); Calcium, Blood 10.2 mg/dL (8.5-10.1); Creatinine, Blood 1.09 mg/dL (0.40-1.00); Magnesium, Blood 2.5 mg/dL (1.6-2.4); Potassium, Blood 5.3 mmol/L (3.5-5.5)
--- NOTE | 2023-11-19 06:47 | NUR ---
PT SLEPT A LOT THIS SHIFT WITH EVEN AND UNLABORED BREATHING. PW AND BRIEF WAS ON PATIENT AND SHE DID NOT HAVE ANY URINE OUTPUT. BLADDER SCANNED PATIENT AND SHE HAD 700ML OF URINE IN HER BLADDER. WOKE PT UP AND HAD 2PERSON ASSIST TO BEDSIDE COMMODE FOR SAFETY. PT URINATED 400ML. 1 PERSON ASSIST BACK TO BED FROM BEDSIDE COMMODE. NO ACUTE CHANGES THIS SHIFT. BED ALARM ON FOR SAFETY. CALL LIGHT WITHIN REACH.
[2023-11-19 08:23] VITALS: BP 115/72
[2023-11-19] MEDS ORDERED: BEVESPI AEROS10.7 G1 (08:56)
[2023-11-19] MEDS ORDERED: DOCU100 PO (08:59)
[2023-11-19] MEDS ORDERED: Enoxaparin 40 MG/0.4 ML SYR SC SCH (09:00)
[2023-11-19] MEDS ORDERED: Clopidogrel Bisulfate 75 MG Tab PO SCH (09:00)
[2023-11-19] MEDS ORDERED: Nicotine 21 MG PATCH TOP SCH (09:00)
[2023-11-19] MEDS ORDERED: Cholecalciferol 1000 Unit Tablet (=25MCG) PO SCH ×2 (09:00)
[2023-11-19] MEDS ORDERED: Atorvastatin 40 MG Tab PO SCH ×2 (09:00)
[2023-11-19] MEDS ORDERED: ARIPiprazole 5 MG Tab PO SCH (09:00)
[2023-11-19] MEDS ORDERED: CALCIUM 250-VI1 EAC1 PO (09:02)
[2023-11-19] MEDS ORDERED: FURO20 PO (09:03)
[2023-11-19] MEDS ORDERED: IPRAT-ALBUT 0.5-3 ML IH (09:08)
[2023-11-19] MEDS ORDERED: LEVSOD25 PO (09:09)
[2023-11-19] MEDS ORDERED: PANT20 PO (09:11)
[2023-11-19] MEDS ORDERED: SUPPORT MC (09:12)
[2023-11-19 11:10] VITALS: BP 97/68
[2023-11-19 16:27] VITALS: BP 123/83
--- NOTE | 2023-11-19 18:14 | NUR ---
TRANSFER UPDATE/SHIFT SUMMARY PT A/OX3-4, PT HAS EXPRESSIVE APHASIA D/T PAST CVA. PT ABLE TO ANSWER NAME AND ABLE TO IDENTIFY WHAT HOSPITAL. PT HAS RIGHT SIDE DEFICIT, MORE NOTICABLE OF PT'S RIGHT ARM. PT ABLE TO MOVE RIGHT LEG AND PUSH AGAINST THIS RN HANDLIKE PUSHING A PEDAL AND ABLE TO POINT TOES TOWARD SELF. 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 PT O2 TITRATED FROM 6L NC TO 2L NC WHIH IS PT'S BASELINE. NO REPORT OF SPB OR CHEST PAIN DURING SHIFT. PUREWICK IN PLACE. REPORT FOR TRANSFER AT 1803. PT TRANSFERED AT 1820 VIA HOSPITAL BED AND ON 2L NC. PT PERSONAL BELONGINGS IN BAGS AND WITH PT AT TIME OF TRANSFER.
[2023-11-19 18:35] VITALS: BP 134/91
[2023-11-19 19:16] VITALS: BP 137/78
[2023-11-20 03:47] VITALS: BP 121/85
--- NOTE | 2023-11-20 06:46 | NUR ---
SHIFT SUMMARY: NO NEURO CHANGES THIS SHIFT. PATIENT IS DTV THIS AM. BLADDER SCANNED FOR 750ML. PATIENT WAS ASSISTED TO THE BSC AND VOIDED 500ML, PVR 207ML. PATIENT HAS LOST IV ACCESS DURING ACTIVITY. UNABLE TO VISUALIZE A POSSIBLE SITE AT THIS TIME.
[2023-11-20 07:32] VITALS: BP 125/83
[2023-11-20] MEDS ORDERED: NS 250 ML IV PRN (07:35)
[2023-11-20 07:45] LABS: BASOPHILS ABSOLUTE AUTO 0.03 K/mm3 (0.00-0.23); BASOPHILS PERCENT AUTO 0 % (0-2); EOSINOPHILS PERCENT AUTO 0 % (0-6); Hematocrit 50.3 % (33.0-51.0); IMMATURE GRAN ABSOLUTE AUTO 0.06 K/mm3 (0.00-0.10); IMMATURE GRAN PERCENT AUTO 1 % (0-1); LYMPHOCYTES ABSOLUTE AUTO 2.74 K/mm3 (0.84-5.20); LYMPHOCYTES PERCENT AUTO 22 % (21-46); MONOCYTES ABSOLUTE AUTO 1.03 K/mm3 (0.16-1.47); MONOCYTES PERCENT AUTO 8 % (4-13); Mean Corpuscular HGB 29.1 pg (26.0-34.0); Mean Corpuscular HGB Conc 29.8 g/dL (31.5-36.5); Mean Corpuscular Volume 98 fL (80-100); Mean Platelet Volume 9.3 fL (9.1-12.4); NEUTROPHILS ABSOLUTE AUTO 8.48 K/mm3 (1.96-9.15); NEUTROPHILS PERCENT AUTO 69 % (41-73); Platelet Count 461 K/mm3 (150-400); RDW Coefficient Variation 14.2 % (11.7-14.2); RDW Standard Deviation 51.2 fL (35.1-46.3); Red Blood Cell Count 5.15 M/mm3 (3.80-5.20); White Blood Cell Count 12.34 K/mm3 (4.00-11.30)
[2023-11-20 08:04] LABS: Albumin, Blood 2.6 g/dL (3.4-5.0); Albumin/Globulin Ratio 0.5 (0.8-1.8); Bilirubin, Total 0.4 mg/dL (0.1-1.0); Bun/Creatinine Ratio 32.5 (12.0-20.0); Calcium, Blood 9.4 mg/dL (8.5-10.1); Creatinine, Blood 0.89 mg/dL (0.40-1.00); Globulin, Blood 4.8 g/dL (2.2-4.0); Magnesium, Blood 2.3 mg/dL (1.6-2.4); Phosphorus, Blood 2.2 mg/dL (2.5-4.9); Potassium, Blood 5.8 mmol/L (3.5-5.5); Total Protein, Blood 7.4 g/dL (6.4-8.2)
--- NOTE | 2023-11-20 08:37 | NUR ---
MD CALL PIV PLACEMENT ATTEMPT X 2 BY [address] DELACRUZ CALLED AND NOTIFIED. SHE IS CHANGING MED ORDERS, DISCONTINUING TELEMETRY AND ORDER FOR NO IV ACCESS.
[2023-11-20] MEDS ORDERED: Sodium Zirconium Cyclosilicate 10 GM Packet PO SCH (09:00)
[2023-11-20] MEDS ORDERED: Lactobacil 2-S.Thermo-Bifido 1 1 Cap PO SCH (09:00)
[2023-11-20] MEDS ORDERED: PredniSONE 20 MG Tab PO SCH (09:00)
[2023-11-20] MEDS ORDERED: Amoxicillin/Clavulanate K 875 MG Tab PO SCH (09:00)
[2023-11-20 12:49] LABS: Base Excess Venous 12.7 mmol/L; Bicarbonate Venous 34.7 mmol/L (24.0-30.0); PCO2 Venous 47.8 mmHg (38-42); pH Blood Venous 7.49 (7.34-7.37)
[2023-11-20] MEDS ORDERED: Ventolin5 MG/1 ML INH (14:37)
[2023-11-20] MEDS ORDERED: AMOCLA875 PO (14:38)
[2023-11-20] MEDS ORDERED: LACT PO (14:43)
[2023-11-20] MEDS ORDERED: PRED20 PO (14:45)
--- NOTE | 2023-11-20 15:18 | NUR ---
DISCHARGE MS RIDER HAS TROUBLE FINDING WORDS BUT WHEN OFFERED 3 DIFFERENT ANSWER CHOICES SHE CONSISTANTLY CHOSE THE CORRECT ANSWERS AND SAID THAT SHE WAS NOT FEELING CONFUSED. SUPPORTIVE PARTNER AT BEDSIDE ALL DAY, DISCHARGED VIA W/C TO EXIT WITH [employer] ATTENDANT/PARTNER AT 1515HRS. BOTH PARTNER AND PT VERBALISED UNDERSTANDING OF WRITTEN AND VERBAL DISCHARGE INSTRUCTIONS. NO NEW CONCERNS AT TIME OF DISCHARGE. NO IV ACCESS AT TIME OF DISCHARGE. DENIES PAIN.
== END 2023-11-20 15:25 | disposition home or self-care (01) | DRG 189 ==
LOC: ER 11:26 → MEDS 16:01 → PCU 16:01 → MEDS 11-19 18:31
PROVIDERS: Family Medicine; Hospitalist; Physician Assistant; Student in an Organized Health Care Education/Training Program; ADMIT Family Medicine
PROC: 5A09357 Assistance with Respiratory Ventilation, Less than 24 Consecutive Hours, Continuous Positive Airway Pressure (ICD-10-PCS; principal; 2023-11-18)
DX: J96.21 Acute and chronic respiratory failure with hypoxia (principal); J44.1 Chronic obstructive pulmonary disease with (acute) exacerbation; I69.351 Hemiplegia and hemiparesis following cerebral infarction affecting right dominant side; J96.22 Acute and chronic respiratory failure with hypercapnia; K21.9 Gastro-esophageal reflux disease without esophagitis; I10 Essential (primary) hypertension; I73.9 Peripheral vascular disease, unspecified; G40.909 Epilepsy, unspecified, not intractable, without status epilepticus; F12.90 Cannabis use, unspecified, uncomplicated; F17.210 Nicotine dependence, cigarettes, uncomplicated; Z86.718 Personal history of other venous thrombosis and embolism; Z79.01 Long term (current) use of anticoagulants; Z88.8 Allergy status to other drugs, medicaments and biological substances; Z79.899 Other long term (current) drug therapy; Z79.51 Long term (current) use of inhaled steroids; Z79.82 Long term (current) use of aspirin; Z79.2 Long term (current) use of antibiotics; Z79.891 Long term (current) use of opiate analgesic; Z90.89 Acquired absence of other organs; Z90.49 Acquired absence of other specified parts of digestive tract; Z98.890 Other specified postprocedural states; Z98.51 Tubal ligation status; Z85.118 Personal history of other malignant neoplasm of bronchus and lung
CPT/HCPCS: 0241U; 36415; 70450; 71046; 80048; 80053; 82803; 83735; 83880; 84100; 84132; 84145; 84484; 85025; 93005; 93010; 94640; 94645; 94664; 94760; 94762; 96360; 99285-25; A9270; J0696; J2919; J3475; J7030; J7512

== ENCOUNTER 2023-12-25 10:18 | Observation (INO) | payer OTHER ==
[~2023-12-25] VITALS: Ht 162.6 cm; Wt 85.5 kg
[~2023-12-25 10:18] MED LIST changes: +AMOCLA875 PO; +BEVESPI AEROS10.7 G1; +CALCIUM 250-VI1 EAC1 PO; +FURO20 PO; +IPRAT-ALBUT 0.5-3 ML IH; +LACT PO; +PRED20 PO; +SUPPORT MC; +Ventolin5 MG/1 ML INH
[2023-12-25] MEDS ORDERED: Albuterol 2.5 MG/3 ML VIAL INH SCH (10:50)
[2023-12-25 11:12] LABS: BASOPHILS ABSOLUTE AUTO 0.08 K/mm3 (0.00-0.23); BASOPHILS PERCENT AUTO 1 % (0-2); EOSINOPHILS ABSOLUTE AUTO 0.24 K/mm3 (0.00-0.68); EOSINOPHILS PERCENT AUTO 3 % (0-6); IMMATURE GRAN ABSOLUTE AUTO 0.01 K/mm3 (0.00-0.10); IMMATURE GRAN PERCENT AUTO 0 % (0-1); LYMPHOCYTES ABSOLUTE AUTO 3.12 K/mm3 (0.84-5.20); LYMPHOCYTES PERCENT AUTO 37 % (21-46); MONOCYTES PERCENT AUTO 13 % (4-13); Mean Corpuscular HGB 28.9 pg (26.0-34.0); Mean Corpuscular HGB Conc 30.2 g/dL (31.5-36.5); Mean Corpuscular Volume 96 fL (80-100); Mean Platelet Volume 9.5 fL (9.1-12.4); NEUTROPHILS ABSOLUTE AUTO 3.88 K/mm3 (1.96-9.15); NEUTROPHILS PERCENT AUTO 46 % (41-73); Platelet Count 407 K/mm3 (150-400); RDW Coefficient Variation 14.3 % (11.7-14.2); RDW Standard Deviation 50.4 fL (35.1-46.3); White Blood Cell Count 8.43 K/mm3 (4.00-11.30)
[2023-12-25 11:34] LABS: Albumin, Blood 2.9 g/dL (3.4-5.0); Albumin/Globulin Ratio 0.7 (0.8-1.8); Bilirubin, Total 0.2 mg/dL (0.1-1.0); Bun/Creatinine Ratio 15.8 (12.0-20.0); Creatinine, Blood 0.95 mg/dL (0.40-1.00); Globulin, Blood 4.4 g/dL (2.2-4.0); Potassium, Blood 5.2 mmol/L (3.5-5.5); Total Protein, Blood 7.3 g/dL (6.4-8.2)
[2023-12-25] MEDS ORDERED: Azithromycin 500 MG in NS 250 ML IV ONE (11:35)
[2023-12-25] MEDS ORDERED: CefTRIAXone Sodium 1,000 MG in NS 100 ML IV ONE (11:35)
[2023-12-25] MEDS ORDERED: Acetaminophen 325 MG TABLET PO PRN (13:45)
[2023-12-25] MEDS ORDERED: Ipratropium/Albuterol SulF 2.5-0.5MG/3 ML Amp INH SCH (13:50)
[2023-12-25] MEDS ORDERED: Ondansetron HCl 2 MG / ML 2ML Vial IV PRN (13:50)
[2023-12-25 15:55] VITALS: BP 117/67
[2023-12-25] MEDS ORDERED: Furosemide 20 MG Tab PO SCH (18:00)
--- NOTE | 2023-12-25 18:22 | NUR ---
SHIFT SUMMARY PT A NEW ADMIT LATE THIS AFTERNOON. AOX3, SLURRED SPEECH FROM PRIOR CVA'S. SHE CAN BE DIFFICULT TO UNDERSTAND BUT ATTEMPTS TO MAKE HER NEEDS KNOWN. R SIDED DEFICITS. 1 ASSIST TO THE BSC. MEDICATED FOR PAIN PER THE EMAR. AT THE BS. PT EDUCATED ON HOW TO USE THE CALL LIGHT AND CALLS TO MAKE HER NEEDS KNOWN. CALL LIGHT WITHIN REACH, BED LOCKED AND IN THE LOWEST POSITION. WILL REPORT TO ONCOMING NURSE.
[2023-12-25 20:48] VITALS: BP 124/76
[2023-12-25] MEDS ORDERED: MethylPREDNISolone Sod Succ 40 MG VIAL IV SCH (21:00)
[2023-12-25] MEDS ORDERED: Famotidine 20 MG Tab PO SCH (21:00)
[2023-12-25] MEDS ORDERED: Rivaroxaban 2.5 MG TABLET PO SCH (21:00)
[2023-12-25] MEDS ORDERED: Lactobacil 2-S.Thermo-Bifido 1 1 Cap PO SCH (21:00)
[2023-12-25] MEDS ORDERED: Albuterol 2.5 MG/3 ML VIAL INH PRN (21:35)
[2023-12-26] MEDS ORDERED: MethylPREDNISolone Sod Succ 125 MG Vial IV SCH
[2023-12-26 02:02] VITALS: BP 147/91
[2023-12-26] MEDS ORDERED: Levothyroxine Sodium 0.05 MG Tab PO SCH (06:00)
[2023-12-26 06:35] LABS: BASOPHILS ABSOLUTE AUTO 0.07 K/mm3 (0.00-0.23); BASOPHILS PERCENT AUTO 1 % (0-2); EOSINOPHILS ABSOLUTE AUTO 0.18 K/mm3 (0.00-0.68); EOSINOPHILS PERCENT AUTO 2 % (0-6); Hematocrit 43.2 % (33.0-51.0); Hemoglobin 13.3 g/dL (11.5-16.0); IMMATURE GRAN ABSOLUTE AUTO 0.03 K/mm3 (0.00-0.10); IMMATURE GRAN PERCENT AUTO 0 % (0-1); LYMPHOCYTES ABSOLUTE AUTO 2.75 K/mm3 (0.84-5.20); LYMPHOCYTES PERCENT AUTO 33 % (21-46); MONOCYTES ABSOLUTE AUTO 0.54 K/mm3 (0.16-1.47); MONOCYTES PERCENT AUTO 7 % (4-13); Mean Corpuscular HGB 28.7 pg (26.0-34.0); Mean Corpuscular HGB Conc 30.8 g/dL (31.5-36.5); Mean Corpuscular Volume 93 fL (80-100); Mean Platelet Volume 9.7 fL (9.1-12.4); NEUTROPHILS PERCENT AUTO 57 % (41-73); Platelet Count 448 K/mm3 (150-400); RDW Coefficient Variation 14.1 % (11.7-14.2); RDW Standard Deviation 48.1 fL (35.1-46.3); Red Blood Cell Count 4.64 M/mm3 (3.80-5.20); White Blood Cell Count 8.37 K/mm3 (4.00-11.30)
--- NOTE | 2023-12-26 06:39 | NUR ---
Shift Summary Pt on 2L O2 NC, sat > 92%. She did have some dysnpnea with exertion t/o the night. She is on tele running sinus tach, I rcvd one call from tele because pt tach'd up to 150 while moving around in bed. Pt is rcving IV steriods. She is 1 pivot transfer to [facility]. AOx3-4 w/ slurred speech and aphasia which is her baseline d/t hx of CVAs. No acute changes.
[2023-12-26 06:50] LABS: Bun/Creatinine Ratio 16.8 (12.0-20.0); Calcium, Blood 9.6 mg/dL (8.5-10.1); Creatinine, Blood 1.01 mg/dL (0.40-1.00); Magnesium, Blood 2.2 mg/dL (1.6-2.4); Potassium, Blood 4.3 mmol/L (3.5-5.5)
[2023-12-26 07:42] VITALS: BP 121/80
[2023-12-26] MEDS ORDERED: Clopidogrel Bisulfate 75 MG Tab PO SCH (09:00)
[2023-12-26] MEDS ORDERED: Enoxaparin 40 MG/0.4 ML SYR SC SCH (09:00)
[2023-12-26] MEDS ORDERED: PHENYTOIN SODI100 MG PO ×2 (11:46→11:47)
[2023-12-26] MEDS ORDERED: Azithromycin 500 MG in NS 250 ML IV SCH (12:00)
[2023-12-26] MEDS ORDERED: CefTRIAXone Sodium 1,000 MG in NS 100 ML IV SCH (12:00)
[2023-12-26] MEDS ORDERED: Prednisone20 MG PO (12:07)
--- NOTE | 2023-12-26 14:52 | NUR ---
1244 DISCHARGED HOME, ACCOMPANIYING, BOTH PATIENT AND STATED UNDERSTANDING OF DISCAHRGE INSTRUCTIONS, MEDICATIONS, AND FOLLOW UP NEEDS. BOTH DENIED FURTHER QUESTIONS, PLEASANT TO CARE
== END 2023-12-26 13:29 | disposition home or self-care (01) ==
LOC: ER 10:18 → MEDS 10:19
PROVIDERS: Emergency Medicine; ADMIT Internal Medicine
DX: J96.22 Acute and chronic respiratory failure with hypercapnia (principal); J96.21 Acute and chronic respiratory failure with hypoxia; J44.1 Chronic obstructive pulmonary disease with (acute) exacerbation; K21.9 Gastro-esophageal reflux disease without esophagitis; I10 Essential (primary) hypertension; I73.9 Peripheral vascular disease, unspecified; G40.909 Epilepsy, unspecified, not intractable, without status epilepticus; Z79.899 Other long term (current) drug therapy; Z86.73 Personal history of transient ischemic attack (TIA), and cerebral infarction without residual deficits; Z87.891 Personal history of nicotine dependence; Z88.8 Allergy status to other drugs, medicaments and biological substances
CPT/HCPCS: 36415; 71045; 80048; 80053; 83735; 83880; 84145; 84484; 85025; 93005; 93010; 93306; 94640; 94644; 94664; 94760; 96365-59; 96366; 96367; 96368; 96375; 96376; 99285-25; A9270; G0378; J0456; J0696; J2919; J7050

== ENCOUNTER 2024-04-20 10:37 | Emergency (ER) | payer OTHER ==
[~2024-04-20] VITALS: Ht 162.6 cm; Wt 97.1 kg
[~2024-04-20 10:37] MED LIST changes: +PHENYTOIN SODI100 MG PO
[2024-04-21] MEDS ORDERED: CLEARLAX PO (18:02)
[2024-04-21] MEDS ORDERED: MIRALAX17 GM PO (18:31)
[2024-04-21] MEDS ORDERED: MIRALAX1714 PO (18:31)
[2024-04-21] MEDS ORDERED: CYCL10 PO (18:33)
== END 2024-04-20 13:55 | disposition home or self-care (01) ==
LOC: ER 10:37
DX: I99.8 Other disorder of circulatory system (principal); I10 Essential (primary) hypertension; J44.9 Chronic obstructive pulmonary disease, unspecified; K21.9 Gastro-esophageal reflux disease without esophagitis; F17.210 Nicotine dependence, cigarettes, uncomplicated; Z86.73 Personal history of transient ischemic attack (TIA), and cerebral infarction without residual deficits; Z79.02 Long term (current) use of antithrombotics/antiplatelets; Z79.52 Long term (current) use of systemic steroids; Z79.899 Other long term (current) drug therapy; Z88.6 Allergy status to analgesic agent
CPT/HCPCS: 93926; 99283-25

== ENCOUNTER 2024-04-21 11:28 | Inpatient (IN) | payer OTHER ==
[~2024-04-21] VITALS: Ht 162.6 cm; Wt 99.5 kg
[2024-04-21 12:16] LABS: BASOPHILS ABSOLUTE AUTO 0.12 K/mm3 (0.00-0.23); BASOPHILS PERCENT AUTO 1 % (0-2); EOSINOPHILS ABSOLUTE AUTO 0.33 K/mm3 (0.00-0.68); EOSINOPHILS PERCENT AUTO 3 % (0-6); Hematocrit 36.9 % (33.0-51.0); Hemoglobin 10.6 g/dL (11.5-16.0); IMMATURE GRAN ABSOLUTE AUTO 0.02 K/mm3 (0.00-0.10); IMMATURE GRAN PERCENT AUTO 0 % (0-1); LYMPHOCYTES ABSOLUTE AUTO 3.59 K/mm3 (0.84-5.20); LYMPHOCYTES PERCENT AUTO 37 % (21-46); MONOCYTES ABSOLUTE AUTO 1.48 K/mm3 (0.16-1.47); MONOCYTES PERCENT AUTO 15 % (4-13); Mean Corpuscular HGB 25.5 pg (26.0-34.0); Mean Corpuscular HGB Conc 28.7 g/dL (31.5-36.5); Mean Corpuscular Volume 89 fL (80-100); Mean Platelet Volume 9.3 fL (9.1-12.4); NEUTROPHILS ABSOLUTE AUTO 4.13 K/mm3 (1.96-9.15); NEUTROPHILS PERCENT AUTO 43 % (41-73); Platelet Count 589 K/mm3 (150-400); RDW Coefficient Variation 14.6 % (11.7-14.2); RDW Standard Deviation 46.9 fL (35.1-46.3); Red Blood Cell Count 4.16 M/mm3 (3.80-5.20); White Blood Cell Count 9.67 K/mm3 (4.00-11.30)
[2024-04-21 12:41] LABS: Albumin/Globulin Ratio 0.6 (0.8-1.8); Bilirubin, Total 0.3 mg/dL (0.1-1.0); Creatinine, Blood 1.2 mg/dL (0.40-1.00); Globulin, Blood 4.8 g/dL (2.2-4.0); Potassium, Blood 5.6 mmol/L (3.5-5.5); Total Protein, Blood 7.8 g/dL (6.4-8.2)
[2024-04-21 13:10] LABS: International Normalized Ratio 0.96; Prothrombin Time Results 10.3 Sec (9.7-11.5)
[2024-04-21] MEDS ORDERED: Heparin Sodium 5000 Units/ML 1ML MDV IV ONE (14:25)
[2024-04-21] MEDS ORDERED: Heparin Sodium,Porcine/0.5 NS 500 ML IV SCH (14:25)
[2024-04-21] MEDS ORDERED: FLU VACC TS2024-25(6MOS UP)/PF 45 MCG/0.5 ML SYRINGE IM SCH (14:45)
[2024-04-21] MEDS ORDERED: TraZODone HCl 50 MG Tab PO PRN (14:45)
[2024-04-21] MEDS ORDERED: Bisacodyl 10 MG Supp PR PRN (14:45)
[2024-04-21] MEDS ORDERED: Ondansetron 4 MG TAB PO PRN (14:45)
[2024-04-21] MEDS ORDERED: Magnesium Hydroxide Conc 10 ML UDC PO PRN (14:45)
[2024-04-21] MEDS ORDERED: Albuterol 2.5 MG/3 ML VIAL INH PRN (14:55)
[2024-04-21] MEDS ORDERED: Ipratropium/Albuterol SulF 2.5-0.5MG/3 ML Amp INH PRN (15:00)
[2024-04-21] MEDS ORDERED: Mometasone/Formoterol MDI 200/5 mcg 13 GM INH SCH (15:15)
[2024-04-21 17:02] VITALS: BP 114/76
[2024-04-21] MEDS ORDERED: Furosemide 20 MG Tab PO SCH (18:00)
[2024-04-21] MEDS ORDERED: CLEARLAX PO (18:02)
[2024-04-21] MEDS ORDERED: MIRALAX17 GM PO (18:31)
[2024-04-21] MEDS ORDERED: MIRALAX1714 PO (18:31)
[2024-04-21] MEDS ORDERED: CYCL10 PO (18:33)
--- NOTE | 2024-04-21 19:26 | NUR ---
ADMIT/SHIFT SUMMARY PT BROUGHT UP FROM ER, HEPARIN DRIP INFUSING AT 18 UNITS/KG/HR. 2L NC WHICH IS BASELINE AT HOME. CONT PULSE OX SET UP. PUREWICK SET UP DUE TO URINARY FREQUENCY AND PAIN TO RIGHT FOOT WITH AMBULATION. PT AMBULATES SHORT DISTNACES USING FURNITURE TO GET AROUND AT HOME. POOR HISOTORIAN. EX /CAREGIVER SHANNAN AT BEDSIDE AND GAVE HISTORY TO THE BEST OF HIS ABILITY. PT HAS COMMUNICATION DEFICITS FROM CVA HISTORY. 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 LOWER EXTREMITIES EQUAL BILATERALLY. DISCOLORATION TO BASE OF RIGHT TOES, SIGNED DUPLEX INDICATES OCCLUSION PER IMAGING NOTE. DR. KRISHNAMURTHY CONSULTED FOR POSSIBLE INTERVENTION TOMORROW. PT TO BE NPO AT MIDNIGHT. CALL LIGHT WITHIN REACH.
[2024-04-21 19:48] VITALS: BP 122/75
[2024-04-21] MEDS ORDERED: Lactobacil 2-S.Thermo-Bifido 1 1 Cap PO SCH (21:00)
[2024-04-21] MEDS ORDERED: Gabapentin 300 MG Cap PO SCH (21:00)
[2024-04-21] MEDS ORDERED: Famotidine 20 MG Tab PO SCH (21:00)
[2024-04-21] MEDS ORDERED: Dose Adjust by Pharmacy XX STA (22:42)
[2024-04-22] VITALS (11 sets, daily range): BP systolic 109–143; BP diastolic 66–96
--- NOTE | 2024-04-22 04:08 | NUR ---
SHIFT SUMMARY PT ALERT ORIENTED X 4 HAS EXPRESSIVE APHASIA R/T PRIOR CVA. VSS ON 2 L VIA NC. NO C/O PAIN. NO C/O SOB. HAS BEEN CONTINENT ALL NIGHT AND GOT UP THIS AM TO THE COMMODE AND URINATED ON THE COMMODE. CONTINUES ON A CONTINUOUS PULSE OX. REMAINS ON HEPARIN AT 18U/KG/HR OR 27ML/HR. HER HEPARIN LEVEL WAS DONE AT 2100 AND IT WAS HIGH AT >1.50. PHARMACY SAID TO HOLD THE HEPARIN TILL AFTER THEY DO A PTT ON HER. THE PTT WAS 94.2. HEPARIN WAS HELD FROM [id number]. SHE WILL HAVE ANOTHER HEPARIN CHECK AT 0500. SHE WAS HAVING A HARD TIME GOING TO SLEEP SO I GAVE HER A DOSE OF TRAZODONE WHICH SEEMED TO HELP. SHE WILL HAVE A CONSULT TODAY WITH RAGHU FOR HER RLE CLAUDIFICATION. RT FOOR REMAINS DARKENED AND NO PULSE IS FELT ON HER FOOT. SHES BEEN NPO SINCE MIDNIGHT. SHES RESTING IN BED AT THIS TIME WITH CALL LIGHT IN REACH
[2024-04-22 05:36] LABS: Hematocrit 33.7 % (33.0-51.0); Hemoglobin 10.1 g/dL (11.5-16.0); Mean Corpuscular HGB 25.7 pg (26.0-34.0); Mean Corpuscular Volume 86 fL (80-100); Mean Platelet Volume 9.5 fL (9.1-12.4); Platelet Count 595 K/mm3 (150-400); RDW Coefficient Variation 14.3 % (11.7-14.2); Red Blood Cell Count 3.93 M/mm3 (3.80-5.20); White Blood Cell Count 11.32 K/mm3 (4.00-11.30)
[2024-04-22] MEDS ORDERED: Levothyroxine Sodium 0.05 MG Tab PO SCH (06:00)
[2024-04-22 06:07] LABS: Albumin, Blood 2.9 g/dL (3.4-5.0); Albumin/Globulin Ratio 0.7 (0.8-1.8); Bilirubin, Total 0.2 mg/dL (0.1-1.0); Bun/Creatinine Ratio 23.8 (12.0-20.0); Calcium, Blood 9.5 mg/dL (8.5-10.1); Creatinine, Blood 1.22 mg/dL (0.40-1.00); Globulin, Blood 4.3 g/dL (2.2-4.0); Magnesium, Blood 2.1 mg/dL (1.6-2.4); Potassium, Blood 4.4 mmol/L (3.5-5.5); Total Protein, Blood 7.2 g/dL (6.4-8.2)
[2024-04-22] MEDS ORDERED: Dose Adjust by Pharmacy XX STA (06:37)
--- NOTE | 2024-04-22 06:38 | NUR ---
PTS PTT LEVEL WAS 106.7 CALLED PHARMACY AND THEY STATED THAT FOR A DVT THE LEVEL SHOULD BE 80-100. THEY ARE DECREASING HER HEPARIN TO 17U/KG/HR.
[2024-04-22] MEDS ORDERED: Docusate Sodium 100 MG Cap PO SCH (09:00)
[2024-04-22] MEDS ORDERED: ARIPiprazole 5 MG Tab PO SCH (09:00)
--- NOTE | 2024-04-22 09:00 | NUR ---
pt laying in bed awake, s.o. in room with her, she states she's doing ok, a/ox4, cooperative with care, follows commands well, denies pain, lungs are clear dim t/o, resp even and unlabord, harsh nonproductive cough, currently on 2 liters 02 via n/c, hrr, no edema noted, pp not palpated, feet are warm, piv to r upper arm, infusing heperin gtt as ordered, btx4, reports voids/bm without diff, skin c/w/d, except purple area above toes on right foot, rogelio queen, call light in reach.
[2024-04-22] MEDS ORDERED: THERA-D2000 UNIT PO (10:27)
[2024-04-22] MEDS ORDERED: Aspir 8181 MG PO (10:27)
[2024-04-22] MEDS ORDERED: EUTHYROX50 MCG PO (10:27)
[2024-04-22] MEDS ORDERED: NS 250 ML IV ONE (11:08)
[2024-04-22] MEDS ORDERED: Heparin Sodium 1000 Units/ML 10ML MDV ONE ×2 (11:08→12:01)
[2024-04-22] MEDS ORDERED: NS 1,000 ML IV ONE ×2 (11:08→11:30)
--- NOTE | 2024-04-22 11:20 | NUR ---
pt left for procedure via wheelchair.
[2024-04-22] MEDS ORDERED: Midazolam HCl 1MG / ML 2ML Vial ONE (11:30)
[2024-04-22] MEDS ORDERED: FentaNYL Citrate 50 MCG/ML 2 ML Injection ONE (11:30)
--- NOTE | 2024-04-22 12:10 | NUR ---
report given to Odalys Frye RN.
--- NOTE | 2024-04-22 13:46 | NUR ---
TRANSFER NOTE: Pt arrived to room PCU 17 from , laying flat. L groin sight with small amount of oozing under CHG dressing, soft and non-tender. R ankle sight with no bleeding, oozing or swelling noted. VSS. Pt appears comfortable. Educated on need to keep head flat during recovery. Denies questions. Call light in reach.
[2024-04-22] MEDS ORDERED: OxyCODONE 7.5 mg/Acetam 325 mg TABLET PO PRN (15:00)
--- NOTE | 2024-04-22 17:19 | NUR ---
Shift Summary Assumed care of patient post cath procedure. right ankle site started bleeding, held pressure x2 and changed dressing x2. Left groin site continued oozing, held pressure, dressing changed. Pt alert, oriented to person, place; forgetful. Pt reporting pain to rle, medicated per orders. Pt denies chest pain/pressure, sob, nausea, dizziness and numb/tingling. Tele sinus 90-100's, bp stable. Spo2 >90% on ra, breathing even an unlabored. Abd soft, nontender + bt noted. Other vss. No other acute changes noted. Will continue to monitor.
[2024-04-23] VITALS (7 sets, daily range): BP systolic 128–153; BP diastolic 70–92
[2024-04-23 03:27] LABS: Hematocrit 32.4 % (33.0-51.0)
[2024-04-23 03:45] LABS: Bun/Creatinine Ratio 21.3 (12.0-20.0); Calcium, Blood 9.6 mg/dL (8.5-10.1); Creatinine, Blood 1.27 mg/dL (0.40-1.00); Magnesium, Blood 2.2 mg/dL (1.6-2.4); Potassium, Blood 4.4 mmol/L (3.5-5.5)
[2024-04-23] MEDS ORDERED: Dose Adjust by Pharmacy XX STA ×3 (03:54→18:00)
--- NOTE | 2024-04-23 05:15 | NUR ---
SHIFT SUMMARY ASSUMED CARE OF PT AT 1900. PT IS A/OX2. PT UNABLE TO USE CALL BUTTON AND CALLS INTO HALLWAY TO MAKE NEEDS KNOWN. HEART SONDS REGULAR. LUNG SOUNDS CLEAR. PT REMAINED ON HOME O2 OF 2L NC. PT WOULD DESAT TO 85% WHILE SLEEPING BUT RETURN TO ABOVE 90% QUICKLY. PT C/O PAIN IN R FOOT. MEDICATED PER EMAR. PT USED WICKING SYSTEM T/O THE NOC.
[2024-04-23] MEDS ORDERED: Ipratropium Bromide INH 0.02% 0.5 mg/2.5ML Vial INH SCH (13:40)
--- NOTE | 2024-04-23 19:18 | NUR ---
Shift Summary Pt alert, oriented x2-3 t/o shift. Pt up with OT pivot transfer to chair. Pt reports pain t/o shift, medicated per emar. Pt denies chest pain/pressure, sob, dizziness and numb/tinlging. Tele sinus/sinus tach, bt elvated. Spo2 >90% on 4l o2 via nc, titrated down to baseline 2l o2 via nc, when pain is increased pt resp rate/effort worsens. Abd soft, nontender, +bt. Pulses found with dopplers in ble, tibial and pedial, places marked. Other vss. No other acute changes noted. Report given to oncoming rn.
[2024-04-24] VITALS (18 sets, daily range): BP systolic 108–158; BP diastolic 56–95
--- NOTE | 2024-04-24 00:15 | NUR ---
UPDATE HEPARIN INFUSION D/C'd 04/24/24 @ 0009. PT NOW NPO FOR PROCEDURE.
[2024-04-24] MEDS ORDERED: CeFAZolin Sodium 2,000 MG in NS 100 ML IV SCH ×2 (04:00→21:30)
[2024-04-24] MEDS ORDERED: Vancomycin HCL 1,000 MG in NS 250 ML IV SCH (04:00)
--- NOTE | 2024-04-24 06:07 | NUR ---
SHIFT SUMMARY ASSUMED CARE OF PT AT 1900. PT A&O2 W CONFUSION TO TIME AND SITUATION. PT DIFFICULT TO UNDERSTAND AT TIMES D/T HX OF MULTIPLE CVAs. PT COOPERATIVE IN CARE, ABLE TO USE CALL LIGHT FOR ASSISTANCE AND EXPRESSES SELF WITH VERBAL AND NON VERBAL CUES. PT PRESENTED WITH DRESSING TO THE RLE POST TIBIAL SITE AND L GROIN, BOTH C/D/I. CALLED OVERNIGHT RESIDENT FOR PRN IV ORDERS FOR ANALGESICS D/T NPO AT MIDNIGHT ORDERS; NO ORDERS GIVEN. STATED TO RESUME ORAL ANALGESICS DESPITE PROCREDURE TODAY. INCREASE O2 DEMAND NEEDED WHILE SLEEPING; PT NOW ON 4LNC TO KEEP O2 SATS ABOVE 90%. PT DENIES SOB AND CP. BED IN LOWEST POSITION AND CALL LIGHT WITHIN REACH.
[2024-04-24 06:41] LABS: Hematocrit 31.3 % (33.0-51.0); Hemoglobin 9.5 g/dL (11.5-16.0); Mean Platelet Volume 9.2 fL (9.1-12.4); Platelet Count 493 K/mm3 (150-400)
[2024-04-24 07:09] LABS: Albumin, Blood 2.7 g/dL (3.4-5.0); Albumin/Globulin Ratio 0.6 (0.8-1.8); Bilirubin, Total 0.2 mg/dL (0.1-1.0); Bun/Creatinine Ratio 22.4 (12.0-20.0); Calcium, Blood 9.3 mg/dL (8.5-10.1); Creatinine, Blood 1.25 mg/dL (0.40-1.00); Globulin, Blood 4.3 g/dL (2.2-4.0); Magnesium, Blood 2.6 mg/dL (1.6-2.4); Potassium, Blood 4.5 mmol/L (3.5-5.5)
[2024-04-24 09:19] LABS: International Normalized Ratio 0.95; Prothrombin Time Results 10.2 Sec (9.7-11.5)
[2024-04-24] MEDS ORDERED: Ipratropium/Albuterol SulF 2.5-0.5MG/3 ML Amp INH SCH (09:50)
[2024-04-24] MEDS ORDERED: Furosemide 10 MG / ML 2ML Vial IV ONE ×3 (09:50→17:00)
[2024-04-24] MEDS ORDERED: OxyCODONE 7.5 mg/Acetam 325 mg TABLET PO ONE (11:00)
[2024-04-24] MEDS ORDERED: Lactated Ringer's 1,000 ML IV ONE (12:28)
--- NOTE | 2024-04-24 13:25 | NUR ---
Pt left for procedure
[2024-04-24] MEDS ORDERED: Bupivacaine 0.5% HCl 5 MG/ML 30MLVIAL ONE (13:32)
[2024-04-24] MEDS ORDERED: EpiNEPhrine 1 MG/1 ML 1ML Vial ONE (13:32)
[2024-04-24] MEDS ORDERED: propofoL 20 ML IV ONE ×2 (13:36→14:53)
[2024-04-24] MEDS ORDERED: FentaNYL Citrate 50 MCG/ML 2 ML Injection ONE (13:36)
[2024-04-24] MEDS ORDERED: Lidocaine HCl 2% 20 ML MDV ONE (13:37)
--- NOTE | 2024-04-24 13:41 | NUR ---
PT TO PACU VIA BED FROM PCU14 FOR PREOP CARE AT 1330. ALERT & PLEASANT. DENIES PAIN/NAUSEA AT THIS TIME. AFEBRILE/VSS. NO COMPLAINTS. WARM BLANKETS PLACED. SURGICAL PACK [id number]. LR AT TKO INFUSING. SURGICAL HAT/PAS SLEEVE TO LLE/BP CUFF IN PLACE. RESTING QUIETLY.
[2024-04-24] MEDS ORDERED: Metoclopramide HCl 10 MG Tab PO PRN (13:45)
[2024-04-24] MEDS ORDERED: Phenylephrine HCl 10mg/ml 1 ml Vial ONE (13:46)
--- NOTE | 2024-04-24 13:49 | NUR ---
PT TO OR 2 VIA BED IN STABLE CONDITION AT 1340.
[2024-04-24] MEDS ORDERED: Naloxone HCl 0.4MG / ML 1ML Vial IV PRN (13:50)
[2024-04-24] MEDS ORDERED: Ondansetron HCl 2 MG / ML 2ML Vial IV PRN (13:50)
[2024-04-24] MEDS ORDERED: FLU VACC TS2024-25(6MOS UP)/PF 45 MCG/0.5 ML SYRINGE IM SCH (13:50)
[2024-04-24] MEDS ORDERED: Acetaminophen 325 MG TABLET PO PRN (13:50)
[2024-04-24] MEDS ORDERED: Magnesium Hydroxide Conc 10 ML UDC PO PRN (13:50)
[2024-04-24] MEDS ORDERED: HYDROmorphone HCl/Pf 1MG SYR IV PRN (13:50)
[2024-04-24] MEDS ORDERED: Bisacodyl 10 MG Supp PR PRN (13:55)
[2024-04-24] MEDS ORDERED: Ondansetron 4 MG TAB PO PRN (13:55)
[2024-04-24] MEDS ORDERED: OxyCODONE HCL 5 MG TAB PO PRN (13:55)
[2024-04-24] MEDS ORDERED: Dexamethasone Sod Phos 10 MG/ML 1ML VIAL ONE (13:58)
[2024-04-24] MEDS ORDERED: Ondansetron HCl 2 MG / ML 2ML Vial ONE (13:58)
[2024-04-24] MEDS ORDERED: Rocuronium Bromide 10 MG/ML 5ML Injection IV ONE (14:30)
[2024-04-24] MEDS ORDERED: Sugammadex Sodium 200 MG/2ML SDV (100 MG/ML) ONE (14:30)
[2024-04-24] MEDS ORDERED: Albuterol 2.5 MG/3 ML VIAL ONE (15:24)
[2024-04-24 17:34] LABS: Adenovirus Not Detected (NOT DETECT); Bordetella pertussis Not Detected (NOT DETECT); Chlamydophila pneumoniae Not Detected (NOT DETECT); Coronavirus 229E Not Detected (NOT DETECT); Coronavirus HKU1 Not Detected (NOT DETECT); Coronavirus NL63 Not Detected (NOT DETECT); Coronavirus OC43 Not Detected (NOT DETECT); Human Metapneumovirus Not Detected (NOT DETECT); Human Rhinovirus/Enterovirus Not Detected (NOT DETECT); Influenza A/2009-H1 Not Detected (NOT DETECT); Influenza A/H1 Not Detected (NOT DETECT); Influenza A/H3 Not Detected (NOT DETECT); Influenza B Not Detected (NOT DETECT); Mycoplasma pneumoniae Not Detected (NOT DETECT); Parainfluenza Virus 1 Not Detected (NOT DETECT); Parainfluenza Virus 2 Not Detected (NOT DETECT); Parainfluenza Virus 3 Not Detected (NOT DETECT); Parainfluenza Virus 4 Not Detected (NOT DETECT); Respiratory Syncytial Virus Not Detected (NOT DETECT); SARS-Cov-2 (COVID-19), BioFire Not Detected (NOT DETECT)
--- NOTE | 2024-04-24 18:12 | NUR ---
Shift Summary Pt alert, oriented x2; forgetful at times. Resting in bed, up with 2 person pivot transfer [place] [facility] [place] Pt reports pain to rle and headache, medicated per emar. Pt denies chest pain/pressure, nausea, and dizziness. Pt report sob at times, on 2-5l o2 via nc this am. Tele sinus/sinus tach, bp elevated. Abd soft, nontender +bt t/o. Pt to procedure this afternoon, retunrs with R BKA, leg elevated. Pt sleeping, wakes to verbal stimuli and answer questions, falls back to sleep. Purewick in place. Pt desaturating to 80's, on 4l o2 via nc post op, RT titrated up to 13l, currently on 10; notified Dr Glass of change, new order for additional dose of lasix, pt continues to desaturate and concerns of possible apnea episodes, notifed Markell CALDWELL, new orders for CPAP, RT notified. Other vss. Will continue to monitor.
[2024-04-24] MEDS ORDERED: Furosemide 10 MG/ML 4ML Vial IV ONE (18:55)
[2024-04-24 20:38] LABS: Bun/Creatinine Ratio 19.5 (12.0-20.0); Calcium, Blood 9.1 mg/dL (8.5-10.1); Creatinine, Blood 1.13 mg/dL (0.40-1.00); Potassium, Blood 4.4 mmol/L (3.5-5.5)
[2024-04-24] MEDS ORDERED: Docusate Sodium 100 MG Cap PO SCH (21:00)
[2024-04-25 00:11] VITALS: BP 110/66
[2024-04-25] MEDS ORDERED: Vancomycin HCL 1,000 MG in NS 250 ML IV SCH (01:45)
[2024-04-25 04:01] VITALS: BP 133/86
[2024-04-25 05:20] LABS: BASOPHILS ABSOLUTE AUTO 0.06 K/mm3 (0.00-0.23); BASOPHILS PERCENT AUTO 0 % (0-2); EOSINOPHILS ABSOLUTE AUTO 0.02 K/mm3 (0.00-0.68); EOSINOPHILS PERCENT AUTO 0 % (0-6); Hematocrit 29.9 % (33.0-51.0); Hemoglobin 9.1 g/dL (11.5-16.0); IMMATURE GRAN PERCENT AUTO 1 % (0-1); LYMPHOCYTES ABSOLUTE AUTO 2.31 K/mm3 (0.84-5.20); LYMPHOCYTES PERCENT AUTO 16 % (21-46); MONOCYTES ABSOLUTE AUTO 1.93 K/mm3 (0.16-1.47); MONOCYTES PERCENT AUTO 13 % (4-13); Mean Corpuscular HGB 25.9 pg (26.0-34.0); Mean Corpuscular HGB Conc 30.4 g/dL (31.5-36.5); Mean Corpuscular Volume 85 fL (80-100); Mean Platelet Volume 9.6 fL (9.1-12.4); NEUTROPHILS ABSOLUTE AUTO 10.49 K/mm3 (1.96-9.15); NEUTROPHILS PERCENT AUTO 70 % (41-73); Platelet Count 470 K/mm3 (150-400); RDW Coefficient Variation 14.5 % (11.7-14.2); RDW Standard Deviation 44.3 fL (35.1-46.3); Red Blood Cell Count 3.52 M/mm3 (3.80-5.20); White Blood Cell Count 14.91 K/mm3 (4.00-11.30)
[2024-04-25 05:54] LABS: Albumin, Blood 2.6 g/dL (3.4-5.0); Albumin/Globulin Ratio 0.6 (0.8-1.8); Bilirubin, Total 0.2 mg/dL (0.1-1.0); Calcium, Blood 8.9 mg/dL (8.5-10.1); Creatinine, Blood 1.05 mg/dL (0.40-1.00); Globulin, Blood 4.5 g/dL (2.2-4.0); Magnesium, Blood 2.4 mg/dL (1.6-2.4); Phosphorus, Blood 3.5 mg/dL (2.5-4.9); Potassium, Blood 4.2 mmol/L (3.5-5.5); Total Protein, Blood 7.1 g/dL (6.4-8.2)
--- NOTE | 2024-04-25 06:38 | NUR ---
SHIFT SUMMARY ASSUMED CARE OF PT AT 1900. PT A&O2 W CONFUSION TO TIME AND SITUATION. PT IS AWARE OF LOCATION AND SELF. CONTACTED OVERNIGHT MD FOR CLARIFICATION OF ORDERS; ORDERS PLACED FROM PREVIOUS SHIFT TO GIVE 40MG OF LASIX (100MG IN 24HRs) AND LAST DOSE GIVEN ABOUT AN HOUR PRIOR TO NEW ONE TIME DOSE ORDER. MD WANTED TO EVALUATE THE PT AND COLLECT BMP PRIOR TO GIVING ORDERS. AFTER REVIEWING LABS AND PT; MD ORDERED TO HOLD LASIX. DURING THIS TIME, PT WAS WEANED DOWN FROM 10L HF TO 4L NC PRIOR TO BEING PACED ON CPAP OVERNIGHT. PT'S LUNGS SOUNDS CLEAR AND URINE OUTPUT WAS OVER 900ML PRIOR TO MD'S NEW ORDER TO HOLD MED. PT TOLERATED CPAP WELL. BED IN LOWEST POSITION AND CALL LIGHT WITHIN REACH.
[2024-04-25 08:03] VITALS: BP 148/68
[2024-04-25] MEDS ORDERED: Trimethoprim/Sulfamethoxazole DS Tab PO SCH (09:00)
[2024-04-25] MEDS ORDERED: Furosemide 10 MG / ML 2ML Vial IV SCH (09:00)
[2024-04-25] MEDS ORDERED: HYDROmorphone HCl 2 MG Tab PO PRN (09:25)
[2024-04-25] MEDS ORDERED: OxyCODONE 7.5 mg/Acetam 325 mg TABLET PO PRN (09:30)
[2024-04-25] MEDS ORDERED: CefTRIAXone Sodium 2,000 MG in NS 100 ML IV SCH (10:00)
[2024-04-25] MEDS ORDERED: Furosemide 10 MG/ML 4ML Vial IV ONE (10:00)
[2024-04-25 11:46] VITALS: BP 124/80
[2024-04-25] MEDS ORDERED: Dose Adjust by Pharmacy XX STA (13:16)
--- NOTE | 2024-04-25 18:28 | NUR ---
SHIFT SUMMARY PT A&O TO SELF AND PLACE. PT EXPERIENCES APHASIA AND HAS DIFFICULTY W/ FORMING SENTENCES, BUT IS ABLE TO MAKE NEEDS KNOWN. VSS, NO COMPLAINTS OF CP/PRESSURE OR SOB. PT RECEIVED SCHEDULED AND PRN MEDICATIONS. PT POST OP FROM A BKA ON THE RLE ON 04/24. MEDICATED FOR PAIN. PT HEPARIN DRIP RESTARTED AROUND 1620. PT REPOSITIONED Q2HRS. NO ACUTE EVENTS AT THIS TIME. PT LEFT IN A POSITION OF SAFETY W/ FALL PRECAUTIONS IN PLACE AND CALL LIGHT IN REACH.
[2024-04-25 20:09] VITALS: BP 124/78
[2024-04-26] MEDS ORDERED: Dose Adjust by Pharmacy XX STA ×3 (00:22→08:44)
[2024-04-26 04:29] VITALS: BP 109/73
--- NOTE | 2024-04-26 05:05 | NUR ---
SHIFT SUMMARY ASSUMED CARE OF PT AT 1900. PT A&O2, WITH HX OF APHAGIA D/T MULIPLE CVAs. PT VSS AND REMAINED ON 4L NC UNTIL PLACED ON CPAP FOR THE NIGHT. PT REQUESTED PRN ANALGESICS D/T RECENT R BKA AND USED HEAT PAD FOR ADDITIONAL RELIEF. PT WAS ABLE TO REPOSIION SELF FROM BEDPAN AND USES PUREWICK D/T DIURESING. R BKA DRESSING C/D/I. HEP GTTS RUNNING AT SHIFT CHANGE 17U/KG/HR AND 25.5ML; TITRATED UP TO 19U/KG/HR AND 28.5ML/HR AFTER MIDNIGHT PER RX. PT'S BED IN LOWEST POSITION AND CALL LIGHT WITHIN REACH.
[2024-04-26 07:00] LABS: BASOPHILS ABSOLUTE AUTO 0.04 K/mm3 (0.00-0.23); BASOPHILS PERCENT AUTO 0 % (0-2); EOSINOPHILS PERCENT AUTO 2 % (0-6); Hematocrit 28.2 % (33.0-51.0); Hemoglobin 8.6 g/dL (11.5-16.0); IMMATURE GRAN ABSOLUTE AUTO 0.09 K/mm3 (0.00-0.10); IMMATURE GRAN PERCENT AUTO 1 % (0-1); LYMPHOCYTES ABSOLUTE AUTO 2.67 K/mm3 (0.84-5.20); LYMPHOCYTES PERCENT AUTO 19 % (21-46); MONOCYTES ABSOLUTE AUTO 2.13 K/mm3 (0.16-1.47); MONOCYTES PERCENT AUTO 15 % (4-13); Mean Corpuscular HGB 25.6 pg (26.0-34.0); Mean Corpuscular HGB Conc 30.5 g/dL (31.5-36.5); Mean Corpuscular Volume 84 fL (80-100); NEUTROPHILS ABSOLUTE AUTO 8.57 K/mm3 (1.96-9.15); NEUTROPHILS PERCENT AUTO 62 % (41-73); Platelet Count 407 K/mm3 (150-400); RDW Coefficient Variation 14.7 % (11.7-14.2); RDW Standard Deviation 44.4 fL (35.1-46.3); Red Blood Cell Count 3.36 M/mm3 (3.80-5.20)
[2024-04-26 07:30] LABS: Albumin, Blood 2.4 g/dL (3.4-5.0); Albumin/Globulin Ratio 0.5 (0.8-1.8); Bilirubin, Total 0.2 mg/dL (0.1-1.0); Bun/Creatinine Ratio 21.6 (12.0-20.0); Calcium, Blood 9.2 mg/dL (8.5-10.1); Creatinine, Blood 1.02 mg/dL (0.40-1.00); Globulin, Blood 4.5 g/dL (2.2-4.0); Magnesium, Blood 2.3 mg/dL (1.6-2.4); Phosphorus, Blood 2.2 mg/dL (2.5-4.9); Potassium, Blood 4.1 mmol/L (3.5-5.5); Total Protein, Blood 6.9 g/dL (6.4-8.2)
[2024-04-26 07:35] VITALS: BP 118/58
[2024-04-26 11:10] VITALS: BP 137/82
[2024-04-26 11:49] VITALS: BP 119/72
--- NOTE | 2024-04-26 14:11 | NUR ---
SURGEON TO BEDSIDE TO ROUND AND DO A WOUND CLEANING. STATED STITCHES WILL COME OUT IN 3 WKS AND HE WILL SEE HER AT HIS OFFICE UNLESS SOMETHING ELSE COMES UP. WOULD LIKE DRESSING TO BE CHANGED EVERY 48HRS WITH HYDROGEN PEROXIDE, GAUZE AND NEW A BD BANDAGED WITH A NEW STUMP SOCK.
[2024-04-26] MEDS ORDERED: Calcium Carbonate 500 MG Tab Chew PO PRN (14:55)
[2024-04-26] MEDS ORDERED: Mag Hydrox/Al Hydrox/Simeth 18 ML,Lidocaine 2% Viscous Soln 9 ML,Atropine/Scopalam/Hyos... PO ONE (15:10)
[2024-04-26 16:19] VITALS: BP 126/69
--- NOTE | 2024-04-26 16:34 | NUR ---
TRANSFER NOTE: PATIENT IS ALERT AND ORIENTED X4 AND ABLE TO ANSWER ALL ORIETATION QUESTIONS. HAS EXPRESIVE APHASIA AND A HISTORY OF CVA'S. WAS TAKEN OVER VIA BED WITH ALL BELONGINGS AND AT BEDSIDE AWARE OF TRANSFER. IS ABLE TO MAKE NEEDS KNOWN AND USES CALL LIGHT APPRORIATELY. RECEIVING NURSE WAS GIVEN REPORT PRIOR TO RECEIVING PATIENT.
--- NOTE | 2024-04-26 16:45 | NUR ---
PT ARRIVED TO ROOM 229 FROM U. PLACED PUREWICK, PT TURNED SIDE TO SIDE W/MIN ASSIST. NEW ATTENDS PLACED. CALL LIGHT IN REACH.
[2024-04-26] MEDS ORDERED: Sodium Phosphate 30 MM in Dextrose 5% 500 ML IV ONE (17:55)
[2024-04-26 19:28] VITALS: BP 124/65
[2024-04-27 05:29] VITALS: BP 131/80
[2024-04-27 06:26] LABS: Hemoglobin 8.4 g/dL (11.5-16.0); Mean Corpuscular HGB 25.7 pg (26.0-34.0); Mean Corpuscular HGB Conc 31.1 g/dL (31.5-36.5); Mean Corpuscular Volume 83 fL (80-100); Mean Platelet Volume 9.5 fL (9.1-12.4); NRBC ABSOLUTE 0.02 K/mm3 (0.00-0.02); NRBC Auto 0.2 /100 WBC (0.0-0.2); Platelet Count 463 K/mm3 (150-400); RDW Coefficient Variation 14.7 % (11.7-14.2); RDW Standard Deviation 43.5 fL (35.1-46.3); Red Blood Cell Count 3.27 M/mm3 (3.80-5.20); White Blood Cell Count 12.33 K/mm3 (4.00-11.30)
[2024-04-27 06:49] LABS: Bun/Creatinine Ratio 23.8 (12.0-20.0); Calcium, Blood 9.3 mg/dL (8.5-10.1); Creatinine, Blood 1.01 mg/dL (0.40-1.00); Phosphorus, Blood 3.5 mg/dL (2.5-4.9); Potassium, Blood 4.3 mmol/L (3.5-5.5)
[2024-04-27 07:18] VITALS: BP 121/66
--- NOTE | 2024-04-27 07:46 | NUR ---
SUMMARY PT ALERT AND REQUESTING ICE TEA THIS AM.PT REQUIRING DILAUDID FOR PAIN CONTROL TONIGHT. PT WITH NO ACUTE CHANGES.
[2024-04-27] MEDS ORDERED: Clopidogrel Bisulfate 75 MG Tab PO SCH (09:00)
[2024-04-27] MEDS ORDERED: Rivaroxaban 10 MG Tab PO SCH (09:00)
[2024-04-27] MEDS ORDERED: HYDROmorphone HCl/Pf 1MG SYR IV PRN (10:10)
[2024-04-27] MEDS ORDERED: Polyethylene Glycol 3350 17 gm PO PRN (10:10)
[2024-04-27] MEDS ORDERED: OxyCODONE 10/Acetamin 325 TABLET PO PRN (10:10)
--- NOTE | 2024-04-27 15:39 | NUR ---
Spiritual Care Consult Ordered by; Elza Jeffers Pt. is awake in bed when she welcomed my visit. Spouse is at bedside. Pt. displays evidence of anxiety and some confusion. Through theraputic listening I can determined that the Pt. has multiple stressors outside her own condition. The Pt. verbalized that she has a brother at [place] in [place] with serious circulation issues that will possibly lead to amputation. Another stressor is the recent loss of another family member who was killed in a recent shooting in [place]. Listen with empathy and a calming presence. Pt. displayed evidence of lessened anxiety. Prayed with Pt. Pt. verbalized gratitude for the spiritual care visit. Will continue to be available to the Pt. and family. pt. verbalize
[2024-04-27 15:58] VITALS: BP 121/61
--- NOTE | 2024-04-27 17:52 | NUR ---
SUMMARY PT WAS HAD NAUSEA/INTERMITTENT VOMITING FIRST HALF SHIFT. HAS NOT HAD BM IN SEVERAL DAYS. ADMINISTERED DULCOLAX SUPPOSITORY AND COLACE PER ORDERS. PT DRANK SOME PRUNE JUICE. MEDICATED T/O DAY PER ORDERS FOR PAIN. PT ON 5L 02. LUNGS SOUND COARSE. DRESSING TO RLE CDI. PT HAS DIFFICULTY AT TIMES FINDING WORDS AND EXPRESSING SELF, CAUSES FRUSTRATION TO PT. COOPERATIVE WITH CARE. CALL LIGHT IN REACH.
[2024-04-27 19:50] VITALS: BP 117/66
[2024-04-28 03:29] VITALS: BP 125/64
[2024-04-28 05:43] LABS: Hemoglobin 7.9 g/dL (11.5-16.0); Mean Corpuscular HGB 25.3 pg (26.0-34.0); Mean Corpuscular HGB Conc 30.4 g/dL (31.5-36.5); Mean Corpuscular Volume 83 fL (80-100); Mean Platelet Volume 9.5 fL (9.1-12.4); Platelet Count 478 K/mm3 (150-400); RDW Coefficient Variation 14.9 % (11.7-14.2); RDW Standard Deviation 44.3 fL (35.1-46.3); Red Blood Cell Count 3.12 M/mm3 (3.80-5.20); White Blood Cell Count 9.03 K/mm3 (4.00-11.30)
[2024-04-28 06:13] LABS: Bun/Creatinine Ratio 25.6 (12.0-20.0); Calcium, Blood 9.2 mg/dL (8.5-10.1); Creatinine, Blood 1.21 mg/dL (0.40-1.00); Potassium, Blood 4.4 mmol/L (3.5-5.5)
[2024-04-28 07:56] VITALS: BP 125/74
[2024-04-28 14:40] VITALS: BP 134/72
[2024-04-28 16:26] LABS: Hematocrit 27.5 % (33.0-51.0); Hemoglobin 8.3 g/dL (11.5-16.0)
--- NOTE | 2024-04-28 16:28 | NUR ---
SUMMARY: PT IS POD4 R BKA. A/O, VSS. NO ACUTE CHANGE TODAY. PT TOLERATING 2L NC WELL, SP02 ABOVE 93%. PT REPORTS MORE PAINFUL TONIGHT, MEDICATED PER EMAR. PT ABLE TO STAND, PIVOT TO RECLINER WITH THERAPY, 2 ASSIST. PT NAUSEATED A LITTLE TODAY, RESOLVED WITH ZOFRAN. SMALL AMT OF EMESIS. PT USES CALL LIGHT AND ABLE TO MAKE NEEDS KNOWN.
--- NOTE | 2024-04-28 18:51 | NUR ---
DRESSING REMOVED AND WOUND CLEANSED PER ORDER. SITE APPEARED WNL. ABD PAD AND STUMP SOCK PLACED BACK OVER SITE. LEG ELEVATED ON PILLOW AND PT GIVEN PAIN MEDICATION
[2024-04-28 19:49] VITALS: BP 144/70
[2024-04-29 03:49] VITALS: BP 132/77
[2024-04-29 05:02] LABS: Hematocrit 28.2 % (33.0-51.0); Hemoglobin 8.6 g/dL (11.5-16.0); Mean Corpuscular HGB 25.2 pg (26.0-34.0); Mean Corpuscular HGB Conc 30.5 g/dL (31.5-36.5); Mean Corpuscular Volume 83 fL (80-100); NRBC ABSOLUTE 0.02 K/mm3 (0.00-0.02); NRBC Auto 0.2 /100 WBC (0.0-0.2); Platelet Count 527 K/mm3 (150-400); RDW Coefficient Variation 15.2 % (11.7-14.2); RDW Standard Deviation 45.1 fL (35.1-46.3); Red Blood Cell Count 3.41 M/mm3 (3.80-5.20); White Blood Cell Count 8.01 K/mm3 (4.00-11.30)
[2024-04-29 05:31] LABS: Bun/Creatinine Ratio 24.1 (12.0-20.0); Creatinine, Blood 1.12 mg/dL (0.40-1.00); Potassium, Blood 4.9 mmol/L (3.5-5.5)
[2024-04-29 07:41] VITALS: BP 132/79
--- NOTE | 2024-04-29 07:47 | NUR ---
SHIFT SUMMARY NOC. PT A/OX4, PT HAS DIFFICULTY WITH EXPRESSIVE APHAGIA. PT MEDICATED FOR PAIN AND NAUSEA THIS SHIFT. NO EMESIS EPISODES. PT'S RIGHT STUMP SOCK IS C/D/I. PT USED CPAP WITH O2 BLEED IN WHILE ASLEEP, N/C WHILE AWAKE. PT VOIDING URINE AND TOLERATING PO. PT MAKES NEEDS KNOWN, CALL LIGHT IN REACH.
[2024-04-29 14:50] LABS: SARS-Cov-2 (COVID-19) PCR, MMC NEGATIVE (NEGATIVE)
[2024-04-29 19:18] VITALS: BP 130/81
--- NOTE | 2024-04-29 19:36 | NUR ---
SHIFT SUMMARY S/P R BKA, A/OX4, VSS, TOLERATING PO, PAIN MANAGED PER EMAR, SOME STRUGGLES WITH COMMUNICATION R/T PRIOR CVA BUT SHE IS STILL ABLE TO COMMUNICATE NEEDS. NO ACUTE EVENTS THIS SHIFT, CALL LIGHT IN REACH.
[2024-04-30] MEDS ORDERED: Ipratropium/Albuterol SulF 2.5-0.5MG/3 ML Amp INH SCH (01:25)
--- NOTE | 2024-04-30 04:57 | NUR ---
SHIFT SUMMARY NOC. PT S/P RIGHT BKA. PT MEDICATED FOR PAIN WITH REPORTED RELIEF OF SX. STUMP SOCK C/D/I. PT HAD NO EMESIS AND DENIED NAUSEA, REPORTED SOME INDIGESTION AND HEART BURN SX. PT USING CPAP WITH O2 BLEED IN AND N/C WHILE AWAKE. PT CONTINENT OF URINE AND USING ATTENDS AND BEDPAN. TOLERATING PO. MAKES NEEDS KNOWN, CALL LIGHT IN REACH.
[2024-04-30 05:06] VITALS: BP 135/75
[2024-04-30 07:04] VITALS: BP 133/87
--- NOTE | 2024-04-30 12:01 | NUR ---
DISCHARGE SUMMARY POD6 R BKA, A/OX4, VSS, TOLERATING PO, PAIN MANAGED PER EMAR,IV ACCESS REMOVED AFTER TRANSPORT ARRIVED FOR MANAGER POST. STUMP SOCK AND GAUZE C/D/I, FAMILY WAS PRESENT WHEN TRANSPORT ARRIVED AND UPDATED THAT SHE WAS GOING TO [facility] TODAY. PICKED UP BY TRANSPORT, CALLED REPORT TO [facility] STAFF, CALL BACK NUMBER LEFT SHOULD THEY HAVE ANY QUESTIONS COME UP.
== END 2024-04-30 11:39 | DRG 239 ==
LOC: ER 11:28 → MEDS 11:29 → PCU 04-22 11:53 → SURS 04-22 15:29 → PCU 04-25 11:36 → SURS 04-26 16:48
PROVIDERS: Family Medicine; Internal Medicine; Orthopaedic Surgery; Physician Assistant; Student in an Organized Health Care Education/Training Program; ADMIT Hospitalist
PROC: 047P3ZZ Dilation of Right Anterior Tibial Artery, Percutaneous Approach (ICD-10-PCS; 2024-04-22)
PROC: 047M3ZZ Dilation of Right Popliteal Artery, Percutaneous Approach (ICD-10-PCS; 2024-04-22)
PROC: 047T3ZZ Dilation of Right Peroneal Artery, Percutaneous Approach (ICD-10-PCS; 2024-04-22)
PROC: B41D1ZZ Fluoroscopy of Aorta and Bilateral Lower Extremity Arteries using Low Osmolar Contrast (ICD-10-PCS; 2024-04-22)
PROC: 0Y6H0Z2 Detachment at Right Lower Leg, Mid, Open Approach (ICD-10-PCS; principal; 2024-04-24 12:45)
DX: I70.221 Atherosclerosis of native arteries of extremities with rest pain, right leg (principal); J96.21 Acute and chronic respiratory failure with hypoxia; Z68.43 Body mass index [BMI] 50.0-59.9, adult; I50.32 Chronic diastolic (congestive) heart failure; G40.909 Epilepsy, unspecified, not intractable, without status epilepticus; J44.9 Chronic obstructive pulmonary disease, unspecified; K21.9 Gastro-esophageal reflux disease without esophagitis; F17.210 Nicotine dependence, cigarettes, uncomplicated; E03.9 Hypothyroidism, unspecified; F32.A Depression, unspecified; I77.1 Stricture of artery; I11.0 Hypertensive heart disease with heart failure; D63.8 Anemia in other chronic diseases classified elsewhere; G89.18 Other acute postprocedural pain; M25.551 Pain in right hip; Z88.8 Allergy status to other drugs, medicaments and biological substances; Z79.899 Other long term (current) drug therapy; Z79.51 Long term (current) use of inhaled steroids; Z79.891 Long term (current) use of opiate analgesic; Z79.890 Hormone replacement therapy; Z79.01 Long term (current) use of anticoagulants; Z79.02 Long term (current) use of antithrombotics/antiplatelets; Z86.73 Personal history of transient ischemic attack (TIA), and cerebral infarction without residual deficits; Z99.81 Dependence on supplemental oxygen; Z90.89 Acquired absence of other organs; Z98.51 Tubal ligation status; Z90.49 Acquired absence of other specified parts of digestive tract; Z98.890 Other specified postprocedural states; Z86.718 Personal history of other venous thrombosis and embolism; Z71.6 Tobacco abuse counseling; I99.8 Other disorder of circulatory system; Z88.6 Allergy status to analgesic agent
CPT/HCPCS: 0202U; 36415; 37224; 37228; 37232; 71045; 72192; 75625; 75716; 75774; 76937; 80048; 80053; 83735; 83880; 84100; 85014; 85018; 85025; 85027; 85049; 85347; 85520; 85610; 85730; 88307; 93005; 93010; 93308; 93926; 94640; 94660; 94664; 94762; 96365; 96366; 96376; 97110; 97162; 97165; 97168; 97530; 97535; 99152; 99153; 99283-25; 99284-25; A9270; C1725; C1760; C1769; C1887; C1894; G0378; J0171; J0690; J0696; J1100; J1171; J1644; J1940; J2250; J2371; J2405; J2704; J3010; J3370; J7030; J7050; J7060; J7120; Q9967; U0002

== ENCOUNTER 2024-06-08 17:53 | Emergency (ER) | payer OTHER ==
[~2024-06-08] VITALS: Ht 162.6 cm; Wt 90.7 kg
[~2024-06-08 17:53] MED LIST changes: +Aspir 8181 MG PO; +CLEARLAX PO; +EUTHYROX50 MCG PO; +MIRALAX17 GM PO; +MIRALAX1714 PO; +THERA-D2000 UNIT PO
[2024-06-08] MEDS ORDERED: Ipratropium/Albuterol SulF 2.5-0.5MG/3 ML Amp INH ONE (18:50)
[2024-06-08 19:03] LABS: BASOPHILS ABSOLUTE AUTO 0.12 K/mm3 (0.00-0.23); BASOPHILS PERCENT AUTO 1 % (0-2); EOSINOPHILS ABSOLUTE AUTO 0.13 K/mm3 (0.00-0.68); EOSINOPHILS PERCENT AUTO 1 % (0-6); Hematocrit 30.9 % (33.0-51.0); Hemoglobin 9.1 g/dL (11.5-16.0); IMMATURE GRAN ABSOLUTE AUTO 0.02 K/mm3 (0.00-0.10); IMMATURE GRAN PERCENT AUTO 0 % (0-1); LYMPHOCYTES ABSOLUTE AUTO 3.18 K/mm3 (0.84-5.20); LYMPHOCYTES PERCENT AUTO 31 % (21-46); MONOCYTES ABSOLUTE AUTO 1.25 K/mm3 (0.16-1.47); MONOCYTES PERCENT AUTO 12 % (4-13); Mean Corpuscular HGB 22.8 pg (26.0-34.0); Mean Corpuscular HGB Conc 29.4 g/dL (31.5-36.5); Mean Corpuscular Volume 77 fL (80-100); Mean Platelet Volume 9.5 fL (9.1-12.4); NEUTROPHILS ABSOLUTE AUTO 5.61 K/mm3 (1.96-9.15); NEUTROPHILS PERCENT AUTO 54 % (41-73); NRBC ABSOLUTE 0.04 K/mm3 (0.00-0.02); NRBC Auto 0.4 /100 WBC (0.0-0.2); Platelet Count 654 K/mm3 (150-400); RDW Coefficient Variation 16.1 % (11.7-14.2); RDW Standard Deviation 44.8 fL (35.1-46.3); White Blood Cell Count 10.31 K/mm3 (4.00-11.30)
[2024-06-08 19:33] LABS: Influenza A, PCR NEGATIVE (NEGATIVE); Influenza B, PCR NEGATIVE (NEGATIVE); Resp Syncytial Virus, PCR NEGATIVE (NEGATIVE); SARS-Cov-2 (COVID-19) PCR, MMC NEGATIVE (NEGATIVE)
[2024-06-08 19:39] LABS: Albumin, Blood 2.9 g/dL (3.4-5.0); Albumin/Globulin Ratio 0.7 (0.8-1.8); Bilirubin, Total 0.1 mg/dL (0.1-1.0); Bun/Creatinine Ratio 16.5 (12.0-20.0); Calcium, Blood 9.4 mg/dL (8.5-10.1); Creatinine, Blood 1.21 mg/dL (0.40-1.00); Globulin, Blood 4.4 g/dL (2.2-4.0); Potassium, Blood 4.4 mmol/L (3.5-5.5); Total Protein, Blood 7.3 g/dL (6.4-8.2)
[2024-06-08] MEDS ORDERED: Furosemide 10 MG / ML 2ML Vial IV ONE (20:10)
[2024-06-08 20:30] VITALS: BP 156/107
== END 2024-06-08 21:26 | disposition home or self-care (01) ==
LOC: ER 17:53
PROVIDERS: Emergency Medicine
DX: I11.0 Hypertensive heart disease with heart failure (principal); I50.9 Heart failure, unspecified; J44.9 Chronic obstructive pulmonary disease, unspecified; G40.909 Epilepsy, unspecified, not intractable, without status epilepticus; I69.951 Hemiplegia and hemiparesis following unspecified cerebrovascular disease affecting right dominant side; K21.9 Gastro-esophageal reflux disease without esophagitis; F17.210 Nicotine dependence, cigarettes, uncomplicated; Z99.81 Dependence on supplemental oxygen
CPT/HCPCS: 0241U; 71045; 80053; 84484; 85025; 93005; 93010; 94640; 94664; 96374; 99285-25; J1940

== ENCOUNTER 2024-07-08 04:48 | Inpatient (IN) | payer OTHER ==
[2024-07-08] VITALS (7 sets, daily range): BP systolic 133–163; BP diastolic 62–95
[~2024-07-08] VITALS: Ht 162.6 cm; Wt 107.3 kg
[2024-07-08] MEDS ORDERED: Ipratropium/Albuterol SulF 2.5-0.5MG/3 ML Amp INH ONE (04:55)
[2024-07-08 05:27] LABS: Base Excess Venous 14.2 mmol/L; Bicarbonate Venous 34.7 mmol/L (24.0-30.0); PCO2 Venous > 105 mmHg (38-42); pH Blood Venous 7.21 (7.34-7.37)
[2024-07-08 05:41] LABS: BASOPHILS ABSOLUTE AUTO 0.04 K/mm3 (0.00-0.23); BASOPHILS PERCENT AUTO 0 % (0-2); EOSINOPHILS ABSOLUTE AUTO 0.05 K/mm3 (0.00-0.68); EOSINOPHILS PERCENT AUTO 1 % (0-6); Hematocrit 30.3 % (33.0-51.0); Hemoglobin 7.8 g/dL (11.5-16.0); IMMATURE GRAN ABSOLUTE AUTO 0.12 K/mm3 (0.00-0.10); IMMATURE GRAN PERCENT AUTO 1 % (0-1); LYMPHOCYTES ABSOLUTE AUTO 1.59 K/mm3 (0.84-5.20); LYMPHOCYTES PERCENT AUTO 16 % (21-46); MONOCYTES ABSOLUTE AUTO 1.55 K/mm3 (0.16-1.47); MONOCYTES PERCENT AUTO 16 % (4-13); Mean Corpuscular HGB 21.1 pg (26.0-34.0); Mean Corpuscular HGB Conc 25.7 g/dL (31.5-36.5); Mean Corpuscular Volume 82 fL (80-100); Mean Platelet Volume 9.8 fL (9.1-12.4); NEUTROPHILS ABSOLUTE AUTO 6.42 K/mm3 (1.96-9.15); NEUTROPHILS PERCENT AUTO 66 % (41-73); NRBC ABSOLUTE 0.18 K/mm3 (0.00-0.02); NRBC Auto 1.8 /100 WBC (0.0-0.2); Platelet Count 490 K/mm3 (150-400); RDW Coefficient Variation 17.4 % (11.7-14.2); RDW Standard Deviation 51.7 fL (35.1-46.3); Red Blood Cell Count 3.69 M/mm3 (3.80-5.20); White Blood Cell Count 9.77 K/mm3 (4.00-11.30)
[2024-07-08] MEDS ORDERED: Azithromycin 500 MG in NS 250 ML IV ONE (05:55)
[2024-07-08] MEDS ORDERED: Cefepime HCl 1,000 MG in NS 100 ML IV ONE (05:55)
[2024-07-08 06:02] LABS: International Normalized Ratio 0.95; Prothrombin Time Results 10.2 Sec (9.7-11.5)
[2024-07-08 06:08] LABS: Magnesium, Blood 2.6 mg/dL (1.6-2.4)
[2024-07-08 06:10] LABS: Albumin, Blood 2.9 g/dL (3.4-5.0); Albumin/Globulin Ratio 0.6 (0.8-1.8); Bilirubin, Total 0.1 mg/dL (0.1-1.0); Bun/Creatinine Ratio 21.9 (12.0-20.0); Calcium, Blood 9.1 mg/dL (8.5-10.1); Creatinine, Blood 1.14 mg/dL (0.40-1.00); Globulin, Blood 4.8 g/dL (2.2-4.0); Phosphorus, Blood 5.2 mg/dL (2.5-4.9); Potassium, Blood 4.7 mmol/L (3.5-5.5); Thyroid Stimulating Hormone 0.682 uIU/mL (0.360-4.800); Total Protein, Blood 7.7 g/dL (6.4-8.2)
[2024-07-08] MEDS ORDERED: FLU VACC TS2024-25(6MOS UP)/PF 45 MCG/0.5 ML SYRINGE IM SCH (06:35)
[2024-07-08] MEDS ORDERED: Ondansetron HCl 2 MG / ML 2ML Vial IV PRN (06:35)
[2024-07-08 08:23] LABS: Base Excess Venous 14.3 mmol/L; Bicarbonate Venous 36.5 mmol/L (24.0-30.0); PCO2 Venous 66.9 mmHg (38-42); pH Blood Venous 7.38 (7.34-7.37)
[2024-07-08] MEDS ORDERED: Rivaroxaban 2.5 MG TABLET PO SCH (09:00)
[2024-07-08] MEDS ORDERED: Clopidogrel Bisulfate 75 MG Tab PO SCH (09:00)
[2024-07-08] MEDS ORDERED: Lisinopril 20 MG Tab PO SCH (09:00)
[2024-07-08] MEDS ORDERED: Docusate Sodium 100 MG Cap PO SCH (09:00)
[2024-07-08] MEDS ORDERED: Lactobacil 2-S.Thermo-Bifido 1 1 Cap PO SCH (09:00)
[2024-07-08] MEDS ORDERED: Aspirin 81 MG TabEC PO SCH (09:00)
[2024-07-08] MEDS ORDERED: Furosemide 10 MG / ML 2ML Vial IV SCH (09:00)
[2024-07-08] MEDS ORDERED: Cholecalciferol 1000 Unit Tablet (=25MCG) PO SCH (09:00)
[2024-07-08] MEDS ORDERED: Polyethylene Glycol 3350 17 gm PO SCH (09:00)
[2024-07-08] MEDS ORDERED: PHENYTOIN SODIUM 100 MG PO SCH ×2 (09:00→21:00)
[2024-07-08 11:45] LABS: Source, Urine Clean Catch
[2024-07-08 11:51] LABS: Appearance, Urine Clear (Clear); Bilirubin, Urine Neg (Neg); Blood, Urine Neg (Neg); Color, Urine Yellow (P-Yellow); Glucose Qualitative, Urine Neg (Neg); Ketones, Urine Neg (Neg); Leukocyte Esterase, Urine Neg (Neg); Nitrite, Urine Neg (Neg); Protein, Urine 2+ (Neg); Specific Gravity, Urine 1.015 (1.003-1.022); Urobilinogen, Urine NORM (Normal)
[2024-07-08 12:03] LABS: Bacteria Not Seen /hpf; Hyaline Casts 0-2 /lpf (0-2); Red Blood Cells, Urine 0-2 /hpf (0-2); Squamous Epithelial Cells Few /hpf (Few); White Blood Cells, Urine 0-2 /hpf (0-5)
[2024-07-08 12:31] LABS: U Amphetamine Screen Not Detected; U Barbituate Screen DETECTED; U Benzodiazapine Screen Not Detected; U Buprenorphine Screen Not Detected; U Cannabinoids Screen DETECTED; U Cocaine Screen Not Detected; U Methadone Screen Not Detected; U Methamphetamine Screen Not Detected; U Opiates Screen Not Detected; U Oxycodone Screen DETECTED; U Phencyclidine Screen Not Detected
[2024-07-08] MEDS ORDERED: Atorvastatin 40 MG Tab PO SCH (18:00)
[2024-07-08] MEDS ORDERED: Albuterol 2.5 MG/3 ML VIAL INH PRN (20:00)
[2024-07-08] MEDS ORDERED: Ipratropium/Albuterol SulF 2.5-0.5MG/3 ML Amp INH SCH (20:00)
[2024-07-09 04:16] VITALS: BP 149/79
[2024-07-09 04:47] LABS: Base Excess Venous 21.9 mmol/L; Bicarbonate Venous 44.3 mmol/L (24.0-30.0); PCO2 Venous 45.2 mmHg (38-42); pH Blood Venous 7.59 (7.34-7.37)
[2024-07-09 04:57] LABS: Hematocrit 27.4 % (33.0-51.0); Hemoglobin 7.5 g/dL (11.5-16.0); Mean Corpuscular HGB 21.2 pg (26.0-34.0); Mean Corpuscular HGB Conc 27.4 g/dL (31.5-36.5); Mean Platelet Volume 9.7 fL (9.1-12.4); NRBC ABSOLUTE 0.07 K/mm3 (0.00-0.02); NRBC Auto 0.7 /100 WBC (0.0-0.2); Platelet Count 467 K/mm3 (150-400); RDW Coefficient Variation 17.2 % (11.7-14.2); RDW Standard Deviation 48.6 fL (35.1-46.3); Red Blood Cell Count 3.54 M/mm3 (3.80-5.20); White Blood Cell Count 9.65 K/mm3 (4.00-11.30)
[2024-07-09 05:04] LABS: Mean Corpuscular Volume 77 fL (80-100)
[2024-07-09] MEDS ORDERED: Acetaminophen 325 MG TABLET PO PRN (05:25)
[2024-07-09] MEDS ORDERED: OxyCODONE 10/Acetamin 325 TABLET PO PRN (05:25)
[2024-07-09 05:47] LABS: Albumin, Blood 2.4 g/dL (3.4-5.0); Anion Gap 8 mmol/L (3-11); Blood Urea Nitrogen 23 mg/dL (8-24); Bun/Creatinine Ratio 25.3 (12.0-20.0); CO2, Blood 41 mmol/L (21-32); Calcium, Blood 8.8 mg/dL (8.5-10.1); Chloride, Blood 94 mmol/L (98-108); Creatinine, Blood 0.91 mg/dL (0.40-1.00); Glomerular Filtration Rate 71 (60-); Glucose, Blood 90 mg/dL (70-99); Magnesium, Blood 2.2 mg/dL (1.6-2.4); Phosphorus, Blood 3.3 mg/dL (2.5-4.9); Potassium, Blood 3.9 mmol/L (3.5-5.5); Sodium, Blood 139 mmol/L (136-145)
[2024-07-09] MEDS ORDERED: Levothyroxine Sodium 0.05 MG Tab PO SCH (06:00)
[2024-07-09] MEDS ORDERED: Pantoprazole Sodium 20 MG Tab PO SCH (06:00)
--- NOTE | 2024-07-09 06:07 | NUR ---
SHIFT SUMMARY ASSUMED CARE OF PT AT 1900. PT IS A/OX2-3. PT IS FORGETFUL, ASKING WHERE HE IS AND NOT KNOWING DATE. HEART SOUND REGULAR. LUNG SOUNDS ARE COARSE WITH WHEEING T/O. PT REAINED ON BIPAP DURING THE NOC, PT TAKEN OFF THIS AM DUE TO CRITICAL HIGH PH. MD SORENSEN AWARE. PT ON 4L NC, BASLINE O2. PT HAS R SIDED DEFICITS FROM PREVIOUS STROKES, WIH MINIMAL MOVEMENT IN LOWER EXTREMITIES. PT USED WICKING SYSTEM T/O THE NOC. PT HAS REDNESS UNDER R BREAST AND SCRATCHES ON HER L SIDE.
[2024-07-09] MEDS ORDERED: ACET325 PO (06:18)
[2024-07-09] MEDS ORDERED: BISA10S PR (06:28)
[2024-07-09] MEDS ORDERED: TUMS500 MG PO (06:28)
[2024-07-09] MEDS ORDERED: FAMO20 PO (06:29)
[2024-07-09] MEDS ORDERED: Fleet Enema132 ML PR (06:30)
[2024-07-09] MEDS ORDERED: DULCOLAX400 MG/5 M PO (06:31)
[2024-07-09] MEDS ORDERED: LOSA50 PO (06:31)
[2024-07-09] MEDS ORDERED: ONDA4ODT MM (06:32)
[2024-07-09] MEDS ORDERED: Percocet 10-321 EACH PO (06:34)
[2024-07-09] MEDS ORDERED: VISBIOME 112.51 EACH PO (06:35)
[2024-07-09] MEDS ORDERED: Enoxaparin 40 MG/0.4 ML SYR SC SCH (09:00)
[2024-07-09] MEDS ORDERED: Doxycycline Hyclate 100 MG TAB PO SCH (09:00)
[2024-07-09 09:37] VITALS: BP 133/79
[2024-07-09 11:52] VITALS: BP 142/71
--- NOTE | 2024-07-09 13:20 | NUR ---
update this rn called md conley to notify of positive blood cultures growing gram positive coci clusters
[2024-07-09 15:05] VITALS: BP 141/78
--- NOTE | 2024-07-09 18:19 | NUR ---
SHIFT SUMMARY A&Ox4, CALLS APPROPRIATELY. 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 BP STABLE, SINUS 90's, DENIES CP/PRESSURE. SpO2> 92% 3L VIA NC, DENIES SOB. PT REMAINED BEDREST, Q2 TURNS PROVIDED. PT REFUSED TO WORK WITH PHYSICAL THERAPY TODAY. INCONTINENT/CONTINENT OF URINE, PUREWICK IN PLACE, BEDPAN FOR BMs. NO C/O PAIN. NO OTHER EVENTS, WILL REPORT TO ONCOMING RN.
[2024-07-09 20:00] VITALS: BP 127/76
[2024-07-10 00:47] VITALS: BP 152/85
[2024-07-10 04:41] VITALS: BP 150/101
--- NOTE | 2024-07-10 06:27 | NUR ---
SHIFT SUMMARY PT TOLERATED SHIFT WITH NO CHANGES OVERNIGHT. WILL CONTINUE TO MONITOR UNTIL REPORT PASSED TO DAY SHIFT TEAM.
[2024-07-10 08:33] VITALS: BP 153/89
[2024-07-10 09:34] LABS: Hematocrit 29.3 % (33.0-51.0); Hemoglobin 8.3 g/dL (11.5-16.0); Mean Corpuscular HGB 21.3 pg (26.0-34.0); Mean Corpuscular HGB Conc 28.3 g/dL (31.5-36.5); Mean Corpuscular Volume 75 fL (80-100); NRBC ABSOLUTE 0.03 K/mm3 (0.00-0.02); NRBC Auto 0.3 /100 WBC (0.0-0.2); Platelet Count 548 K/mm3 (150-400); RDW Coefficient Variation 17.6 % (11.7-14.2); RDW Standard Deviation 47.5 fL (35.1-46.3); White Blood Cell Count 10.71 K/mm3 (4.00-11.30)
[2024-07-10 09:55] LABS: Albumin, Blood 2.7 g/dL (3.4-5.0); Anion Gap 8 mmol/L (3-11); Blood Urea Nitrogen 21 mg/dL (8-24); Bun/Creatinine Ratio 26.8 (12.0-20.0); CO2, Blood 43 mmol/L (21-32); Calcium, Blood 9.3 mg/dL (8.5-10.1); Chloride, Blood 95 mmol/L (98-108); Creatinine, Blood 0.78 mg/dL (0.40-1.00); Ferritin, Serum 24 ng/mL (8-252); Glomerular Filtration Rate 86 (60-); Glucose, Blood 103 mg/dL (70-99); Magnesium, Blood 2.3 mg/dL (1.6-2.4); Phosphorus, Blood 3.2 mg/dL (2.5-4.9); Potassium, Blood 3.5 mmol/L (3.5-5.5); Sodium, Blood 142 mmol/L (136-145)
[2024-07-10] MEDS ORDERED: Iron Polysaccharides Complex 150 MG Cap PO SCH (10:35)
[2024-07-10 11:46] VITALS: BP 134/91
[2024-07-10] MEDS ORDERED: Gabapentin 300 MG Cap PO SCH (12:00)
[2024-07-10] MEDS ORDERED: Losartan Potassium 50 MG Tab PO ONE (12:05)
[2024-07-10 15:53] VITALS: BP 119/66
--- NOTE | 2024-07-10 17:37 | NUR ---
SHIFT SUMMARY A&Ox4, CALLS APPROPRIATELY. 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 BP STABLE, SINUS 90's, DENIES CP/PRESSURE. SpO2> 92% 3L VIA NC, DENIES SOB. PT REMAINED BEDREST, Q2 TURNS PROVIDED. PT PARTICIAPTED IN BED MOBILITY WORK WITH PHYSICAL THERAPY TODAY. INCONTINENT/CONTINENT OF URINE & BM, PUREWICK IN PLACE. NO C/O PAIN. NO OTHER EVENTS, WILL REPORT TO ONCOMING RN.
[2024-07-10 20:00] VITALS: BP 133/74
[2024-07-11] VITALS: BP 129/76
[2024-07-11 03:59] LABS: Hemoglobin 7.9 g/dL (11.5-16.0); Mean Corpuscular HGB 21.1 pg (26.0-34.0); Mean Corpuscular HGB Conc 28.2 g/dL (31.5-36.5); Mean Corpuscular Volume 75 fL (80-100); Mean Platelet Volume 10.1 fL (9.1-12.4); NRBC ABSOLUTE 0.03 K/mm3 (0.00-0.02); NRBC Auto 0.3 /100 WBC (0.0-0.2); Platelet Count 486 K/mm3 (150-400); RDW Coefficient Variation 17.5 % (11.7-14.2); RDW Standard Deviation 46.5 fL (35.1-46.3); Red Blood Cell Count 3.75 M/mm3 (3.80-5.20); White Blood Cell Count 9.55 K/mm3 (4.00-11.30)
[2024-07-11 04:00] VITALS: BP 134/79
[2024-07-11 04:25] LABS: Albumin, Blood 2.3 g/dL (3.4-5.0); Anion Gap 8 mmol/L (3-11); Blood Urea Nitrogen 34 mg/dL (8-24); Bun/Creatinine Ratio 39.3 (12.0-20.0); CO2, Blood 39 mmol/L (21-32); Calcium, Blood 9.1 mg/dL (8.5-10.1); Chloride, Blood 97 mmol/L (98-108); Creatinine, Blood 0.87 mg/dL (0.40-1.00); Glomerular Filtration Rate 75 (60-); Glucose, Blood 95 mg/dL (70-99); Magnesium, Blood 2.1 mg/dL (1.6-2.4); Phosphorus, Blood 4.2 mg/dL (2.5-4.9); Potassium, Blood 3.6 mmol/L (3.5-5.5); Sodium, Blood 140 mmol/L (136-145)
[2024-07-11 07:21] VITALS: BP 144/73
--- NOTE | 2024-07-11 09:48 | NUR ---
ASSUMPTION OF CARE: PATIENT WITH OBVIOUS EXPRESSIVE APHAGIA, ABLE TO USE HANDS FOR NUBERS AND IS ALERT AND ORIENTED, CAN MAKE NEEDS KNOWN, NO ACUTE DISTRESS, OF NOTE PATIENT DID NOT WEAR THE BIPAP MUCH THROUGH THE NIGHT, IS TIGHT COARSE THORUGHOUT, NO ACUTE DISTRESS NOTED. GOAL FOR HER TO REPOSITION HERSELF MUCH POSSIBLE, WITH MINIMAL ASSISTANCE FROM STAFF, EDUCATED ON DIURETICS WELL. PATIENT AGREEABLE. DENIES CHEST PAIN PRESSURE OR SOB. ROTATED IV. BOWEL CARE MEDS PROVIDED. PUREWICK DRAINING WELL. NO ACUTE CONCERNS FROM MYSELF, PROVIDER DAUGHTER OR PATIENT.
[2024-07-11 15:09] VITALS: BP 122/68
--- NOTE | 2024-07-11 18:38 | NUR ---
EOS: NO SIGNIFICANT CHANGE TO ASSUMPTION EXCEPT SHE CAN BE SLIGHTLY DYSPNIC WITH EXERTION, DOES NOT REQUIRE ADDITIONAL OXYGEN, HAS BEEN STEADY AT ~ 3.5L HAS BEEN COOPERATIVE PLEASANT, ENCOURAGED MOBILITY AND CARE THAT SHE CAN PROVIDE FOR SELF. DENIES CHEST PAIN PRESURE OR SOB.
[2024-07-11 20:00] VITALS: BP 98/52
[2024-07-12 00:02] VITALS: BP 116/64
[2024-07-12 04:13] VITALS: BP 119/73
--- NOTE | 2024-07-12 06:02 | NUR ---
PT SLEPT AT INTERVALS, O2 AT 4 LITERS DUE TO DECREASE SATS WHEN SLEEPING. PT DENIES PAIN,NO S/S OF DISTRESS NOTED
[2024-07-12 08:03] VITALS: BP 113/71
[2024-07-12] MEDS ORDERED: XARELTO2.5 M1 PO (10:09)
[2024-07-12] MEDS ORDERED: DOXY100 PO (10:10)
[2024-07-12] MEDS ORDERED: FERRIC X-150150 M1 PO (10:11)
[2024-07-12 14:37] VITALS: BP 102/58
== END 2024-07-12 18:31 | DRG 189 ==
LOC: ER 04:48 → PCU 06:39 → ERHOLD 06:39 → PCU 19:13
PROVIDERS: Emergency Medicine; Internal Medicine; ADMIT Student in an Organized Health Care Education/Training Program
PROC: 5A09357 Assistance with Respiratory Ventilation, Less than 24 Consecutive Hours, Continuous Positive Airway Pressure (ICD-10-PCS; principal; 2024-07-08)
DX: J96.22 Acute and chronic respiratory failure with hypercapnia (principal); J18.9 Pneumonia, unspecified organism; I69.351 Hemiplegia and hemiparesis following cerebral infarction affecting right dominant side; J44.1 Chronic obstructive pulmonary disease with (acute) exacerbation; I13.0 Hypertensive heart and chronic kidney disease with heart failure and stage 1 through stage 4 chronic kidney disease, or unspecified chronic kidney disease; I50.32 Chronic diastolic (congestive) heart failure; J96.01 Acute respiratory failure with hypoxia; G40.909 Epilepsy, unspecified, not intractable, without status epilepticus; K21.9 Gastro-esophageal reflux disease without esophagitis; F17.210 Nicotine dependence, cigarettes, uncomplicated; Z96.651 Presence of right artificial knee joint; E03.9 Hypothyroidism, unspecified; D63.1 Anemia in chronic kidney disease; N18.9 Chronic kidney disease, unspecified; I27.21 Secondary pulmonary arterial hypertension; I73.9 Peripheral vascular disease, unspecified; Z79.51 Long term (current) use of inhaled steroids; Z79.02 Long term (current) use of antithrombotics/antiplatelets; Z79.899 Other long term (current) drug therapy; Z79.890 Hormone replacement therapy; Z88.5 Allergy status to narcotic agent; Z79.82 Long term (current) use of aspirin; Z79.891 Long term (current) use of opiate analgesic; Z79.01 Long term (current) use of anticoagulants; Z99.81 Dependence on supplemental oxygen; Z90.89 Acquired absence of other organs; Z98.51 Tubal ligation status; Z90.49 Acquired absence of other specified parts of digestive tract; Z95.828 Presence of other vascular implants and grafts
CPT/HCPCS: 36415; 71045; 80053; 80069; 81001; 82140; 82728; 82803; 82947; 83605; 83735; 83880; 84100; 84145; 84443; 84484; 85025; 85027; 85610; 85730; 87040; 87077; 93005; 93010; 93308; 93321; 94640; 94660; 94664; 94762; 96365; 97110; 97161; 97530; 99285-25; A9270; J0456; J0692; J1940; J2470; J7050

== ENCOUNTER 2024-10-28 09:11 | Emergency (ER) | payer OTHER ==
[~2024-10-28] VITALS: Ht 162.6 cm; Wt 115.7 kg
[~2024-10-28 09:11] MED LIST changes: +ACET325 PO; +ALBU90OI INH; +BISA10S PR; +CEPHALEXIN500 MG PO; +DOXY100 PO; +DULCOLAX400 MG/5 M PO; +FAMO20 PO; +FERRIC X-150150 M1 PO; +Fleet Enema132 ML PR; +LOSA50 PO; +ONDA4ODT MM; +Percocet 10-321 EACH PO; +TUMS500 MG PO; +VISBIOME 112.51 EACH PO; +XARELTO2.5 M1 PO
[2024-10-28] MEDS ORDERED: Albuterol 2.5 MG/3 ML VIAL INH SCH (09:25)
[2024-10-28] MEDS ORDERED: Ipratropium/Albuterol SulF 2.5-0.5MG/3 ML Amp INH ONE (09:25)
[2024-10-28] MEDS ORDERED: MethylPREDNISolone Sod Succ 125 MG Vial IV ONE (09:30)
[2024-10-28 09:47] LABS: Base Excess Venous 23.4 mmol/L; Bicarbonate Venous 43.6 mmol/L (24.0-30.0); pH Blood Venous 7.45 (7.34-7.37)
[2024-10-28 09:54] LABS: BASOPHILS ABSOLUTE AUTO 0.03 K/mm3 (0.00-0.23); BASOPHILS PERCENT AUTO 1 % (0-2); EOSINOPHILS ABSOLUTE AUTO 0.26 K/mm3 (0.00-0.68); EOSINOPHILS PERCENT AUTO 4 % (0-6); Hematocrit 50.8 % (33.0-51.0); Hemoglobin 14.9 g/dL (11.5-16.0); IMMATURE GRAN ABSOLUTE AUTO 0.04 K/mm3 (0.00-0.10); IMMATURE GRAN PERCENT AUTO 1 % (0-1); LYMPHOCYTES ABSOLUTE AUTO 1.58 K/mm3 (0.84-5.20); LYMPHOCYTES PERCENT AUTO 24 % (21-46); MONOCYTES ABSOLUTE AUTO 0.71 K/mm3 (0.16-1.47); MONOCYTES PERCENT AUTO 11 % (4-13); Mean Corpuscular HGB 28.3 pg (26.0-34.0); Mean Corpuscular HGB Conc 29.3 g/dL (31.5-36.5); Mean Corpuscular Volume 97 fL (80-100); NEUTROPHILS ABSOLUTE AUTO 4.02 K/mm3 (1.96-9.15); NEUTROPHILS PERCENT AUTO 61 % (41-73); RDW Coefficient Variation 13.8 % (11.7-14.2); RDW Standard Deviation 46.7 fL (35.1-46.3); Red Blood Cell Count 5.26 M/mm3 (3.80-5.20); White Blood Cell Count 6.64 K/mm3 (4.00-11.30)
[2024-10-28 10:14] LABS: Mean Platelet Volume 9.5 fL (9.1-12.4); Platelet Count 206 K/mm3 (150-400)
[2024-10-28 10:17] LABS: Magnesium, Blood 2.2 mg/dL (1.6-2.4)
[2024-10-28 10:19] LABS: Source, Urine Straight Cath
[2024-10-28 10:27] LABS: Appearance, Urine Clear (Clear); Bilirubin, Urine Neg (Neg); Blood, Urine Neg (Neg); Color, Urine Yellow (P-Yellow); Glucose Qualitative, Urine Neg (Neg); Ketones, Urine Neg (Neg); Leukocyte Esterase, Urine Neg (Neg); Nitrite, Urine Neg (Neg); Protein, Urine 3+ (Neg); Specific Gravity, Urine 1.015 (1.003-1.022); Urobilinogen, Urine NORM (Normal)
[2024-10-28 10:28] LABS: Alanine Aminotransfer (ALT/SGP 52 U/L (12-78); Albumin, Blood 2.8 g/dL (3.4-5.0); Albumin/Globulin Ratio 0.6 (0.8-1.8); Alk Phos 145 U/L (50-136); Anion Gap 2 mmol/L (3-11); Aspartate Aminotrans (AST/SGOT 33 U/L (12-37); Bilirubin, Total <0.1 mg/dL (0.1-1.0); Blood Urea Nitrogen 15 mg/dL (8-24); Bun/Creatinine Ratio 19.1 (12.0-20.0); CO2, Blood 44 mmol/L (21-32); Calcium, Blood 10.2 mg/dL (8.5-10.1); Chloride, Blood 94 mmol/L (98-108); Creatinine, Blood 0.79 mg/dL (0.40-1.00); Globulin, Blood 4.6 g/dL (2.2-4.0); Glomerular Filtration Rate 85 (60-); Glucose, Blood 116 mg/dL (70-99); Potassium, Blood 4.4 mmol/L (3.5-5.5); Sodium, Blood 136 mmol/L (136-145); Total Protein, Blood 7.4 g/dL (6.4-8.2)
[2024-10-28 10:42] LABS: Bacteria Rare /hpf; Red Blood Cells, Urine 0-2 /hpf (0-2); Squamous Epithelial Cells Rare /hpf (Few); White Blood Cells, Urine 0-2 /hpf (0-5); Yeast/Fungi Urine Mod /hpf
[2024-10-28] MEDS ORDERED: Doxycycline Hyclate 100 MG in Dextrose 5% 250 ML IV ONE (11:10)
[2024-10-28] MEDS ORDERED: IPRAT-ALBUT 0.5-3 ML INH (11:18)
[2024-10-28] MEDS ORDERED: DOXY100 PO (11:18)
[2024-10-28] MEDS ORDERED: PRED20 PO (11:18)
[2024-10-28 16:15] VITALS: BP 139/92
== END 2024-10-28 17:15 | disposition home or self-care (01) ==
LOC: ER 09:11
PROVIDERS: Student in an Organized Health Care Education/Training Program
DX: J44.1 Chronic obstructive pulmonary disease with (acute) exacerbation (principal); R53.1 Weakness; K21.9 Gastro-esophageal reflux disease without esophagitis; I10 Essential (primary) hypertension; F17.210 Nicotine dependence, cigarettes, uncomplicated; Z86.73 Personal history of transient ischemic attack (TIA), and cerebral infarction without residual deficits; Z87.898 Personal history of other specified conditions; Z79.52 Long term (current) use of systemic steroids; Z79.01 Long term (current) use of anticoagulants; Z79.899 Other long term (current) drug therapy; Z88.6 Allergy status to analgesic agent; Z79.890 Hormone replacement therapy
CPT/HCPCS: 71045; 80053; 81001; 82803; 83735; 85025; 87077; 87086; 87106; 87186; 93005; 93010; 96365; 96366; 96375; 99285-25; A6590; J2919; J7060

== ENCOUNTER → 2025-03-30 | Outpatient (CLI) | payer OTHER ==
[~2025-03-30] MED LIST changes: +ACET500 PO; +ARIPIPRAZOLE15 M3 PO; +BEVESPI AEROS10.7 G1 IH; +BREZTRI AEROS10.7 GM IH; +CELEBREX200 MG PO; +COLACE100 MG PO; +EUTHYROX50 MC1 PO; +FERSU300 PO; +FLUT1DIS2 INH; +FUROSEMIDE20 MG PO; +LIPITOR80 MG PO; +LOSARTAN POTASS25 M2 PO; +NEURONTIN300 MG PO; +PANTOPRAZOLE SO2010 PO; +PLAVIX75 MG PO; +RIVAROXABAN2.5 MG PO; +VITAMIN D32000 UNI1 PO; +albuterol sulfate HF
[2025-03-30 10:03] LABS: BASOPHILS ABSOLUTE AUTO 0.06 K/mm3 (0.00-0.23); BASOPHILS PERCENT AUTO 1 % (0-2); EOSINOPHILS ABSOLUTE AUTO 0.39 K/mm3 (0.00-0.68); EOSINOPHILS PERCENT AUTO 6 % (0-6); Hematocrit 36.4 % (33.0-51.0); Hemoglobin 11.3 g/dL (11.5-16.0); IMMATURE GRAN ABSOLUTE AUTO 0.05 K/mm3 (0.00-0.10); IMMATURE GRAN PERCENT AUTO 1 % (0-1); LYMPHOCYTES ABSOLUTE AUTO 1.51 K/mm3 (0.84-5.20); LYMPHOCYTES PERCENT AUTO 22 % (21-46); MONOCYTES ABSOLUTE AUTO 0.75 K/mm3 (0.16-1.47); MONOCYTES PERCENT AUTO 11 % (4-13); Mean Corpuscular HGB Conc 31.0 g/dL (31.5-36.5); Mean Corpuscular Volume 98 fL (80-100); NEUTROPHILS ABSOLUTE AUTO 3.99 K/mm3 (1.96-9.15); NEUTROPHILS PERCENT AUTO 59 % (41-73); NRBC ABSOLUTE 0.00 K/mm3 (0.00-0.02); NRBC Auto 0.0 /100 WBC (0.0-0.2); RDW Coefficient Variation 13.1 % (11.7-14.2); RDW Standard Deviation 47.0 fL (35.1-46.3)
[2025-03-30 11:13] LABS: Alanine Aminotransfer (ALT/SGP 28.0 U/L (12-78); Albumin, Blood 2.3 g/dL (3.4-5.0); Albumin/Globulin Ratio 0.6 (0.8-1.8); Anion Gap 9.0 mmol/L (3-11); Aspartate Aminotrans (AST/SGOT 46.0 U/L (12-37); Bilirubin, Total 0.3 mg/dL (0.1-1.0); Blood Urea Nitrogen 23.0 mg/dL (8-24); CO2, Blood 30.0 mmol/L (21-32); Calcium, Blood 9.1 mg/dL (8.5-10.1); Chloride, Blood 98.0 mmol/L (98-108); Creatinine, Blood 0.94 mg/dL (0.40-1.00); Ferritin, Serum 52.0 ng/mL (8-252); Globulin, Blood 3.9 g/dL (2.2-4.0); Glucose, Blood 88.0 mg/dL (70-99); Lactate Dehydrogenase (Ld),Bld 572.0 U/L (100-240); Potassium, Blood 5.3 mmol/L (3.5-5.5); Sodium, Blood 132.0 mmol/L (136-145); Total Iron Binding Capacity 329.0 ug/dL (250-450); Total Protein, Blood 6.2 g/dL (6.4-8.2)
[2025-03-30 11:25] LABS: Platelet Count 237 K/mm3 (150-400)
== END | disposition home or self-care (01) ==
LOC: LAB SHORT 08:44 → LAB 08:44
PROVIDERS: Registered Nurse Oncology
DX: C82.90 Follicular lymphoma, unspecified, unspecified site (principal); D50.9 Iron deficiency anemia, unspecified; Z85.118 Personal history of other malignant neoplasm of bronchus and lung
CPT/HCPCS: 80053; 82728; 83540; 83550; 83615; 85025

== ENCOUNTER 2025-04-08 19:22 | Emergency (ER) | payer OTHER ==
[~2025-04-08] VITALS: Ht 162.6 cm; Wt 104.3 kg
[~2025-04-08 19:22] MED LIST changes: -ACET500 PO
[2025-04-08 20:57] VITALS: BP 150/89
[2025-04-08] MEDS ORDERED: ACET500 PO (21:37)
== END 2025-04-08 21:59 | disposition home or self-care (01) ==
LOC: ER 19:22
DX: M54.2 Cervicalgia (principal); F17.210 Nicotine dependence, cigarettes, uncomplicated; W01.0XXA Fall on same level from slipping, tripping and stumbling without subsequent striking against object, initial encounter; Z79.82 Long term (current) use of aspirin; Z79.02 Long term (current) use of antithrombotics/antiplatelets; Z79.51 Long term (current) use of inhaled steroids; Z79.899 Other long term (current) drug therapy
CPT/HCPCS: 70450; 71045; 72125; 72170; 93005; 93010; 99284-25

== ENCOUNTER 2025-04-30 12:29 | Emergency (ER) | payer OTHER ==
[~2025-04-30] VITALS: Ht 165.1 cm; Wt 79.4 kg
[~2025-04-30 12:29] MED LIST changes: +ACET500 PO
[2025-04-30 13:57] LABS: Source, Urine Straight Cath
[2025-04-30 14:01] LABS: Bilirubin, Urine Neg (Neg); Glucose Qualitative, Urine Neg (Neg); Ketones, Urine Neg (Neg); Leukocyte Esterase, Urine 2+ (Neg); Protein, Urine 1+ (Neg); Specific Gravity, Urine 1.010 (1.003-1.022); Urobilinogen, Urine NORM (Normal)
[2025-04-30 14:07] LABS: Color, Urine Pale Yellow (P-Yellow)
[2025-04-30 15:34] LABS: BASOPHILS ABSOLUTE AUTO 0.03 K/mm3 (0.00-0.23); BASOPHILS PERCENT AUTO 0 % (0-2); EOSINOPHILS ABSOLUTE AUTO 0.41 K/mm3 (0.00-0.68); EOSINOPHILS PERCENT AUTO 6 % (0-6); Hematocrit 43.7 % (33.0-51.0); Hemoglobin 12.7 g/dL (11.5-16.0); IMMATURE GRAN ABSOLUTE AUTO 0.02 K/mm3 (0.00-0.10); IMMATURE GRAN PERCENT AUTO 0 % (0-1); LYMPHOCYTES ABSOLUTE AUTO 1.77 K/mm3 (0.84-5.20); LYMPHOCYTES PERCENT AUTO 26 % (21-46); MONOCYTES ABSOLUTE AUTO 0.73 K/mm3 (0.16-1.47); MONOCYTES PERCENT AUTO 11 % (4-13); Mean Corpuscular HGB Conc 29.1 g/dL (31.5-36.5); Mean Corpuscular Volume 101 fL (80-100); NEUTROPHILS ABSOLUTE AUTO 3.82 K/mm3 (1.96-9.15); NEUTROPHILS PERCENT AUTO 56 % (41-73); NRBC ABSOLUTE 0.00 K/mm3 (0.00-0.02); NRBC Auto 0.0 /100 WBC (0.0-0.2); Platelet Count 324 K/mm3 (150-400); RDW Coefficient Variation 13.2 % (11.7-14.2); RDW Standard Deviation 49.1 fL (35.1-46.3)
[2025-04-30 16:10] LABS: Alanine Aminotransfer (ALT/SGP 26 U/L (12-78); Albumin, Blood 3.1 g/dL (3.4-5.0); Albumin/Globulin Ratio 0.7 (0.8-1.8); Aspartate Aminotrans (AST/SGOT 37 U/L (12-37); Bilirubin, Total 0.3 mg/dL (0.1-1.0); Blood Urea Nitrogen 24 mg/dL (8-24); Calcium, Blood 11.1 mg/dL (8.5-10.1); Chloride, Blood 96 mmol/L (98-108); Creatinine, Blood 1.02 mg/dL (0.40-1.00); Globulin, Blood 4.3 g/dL (2.2-4.0); Glucose, Blood 98 mg/dL (70-99); Potassium, Blood 4.0 mmol/L (3.5-5.5); Sodium, Blood 140 mmol/L (136-145); Total Protein, Blood 7.4 g/dL (6.4-8.2)
[2025-04-30 16:11] LABS: Anion Gap Unable to Calculate mmol/L (3-11)
[2025-04-30 16:13] LABS: CO2, Blood >45 mmol/L (21-32)
[2025-04-30] MEDS ORDERED: CefTRIAXone Sodium 1,000 MG in NS 50 ML IV ONE (16:25)
[2025-04-30] MEDS ORDERED: Macrobid 100 M100 MG PO (16:55)
[2025-04-30 17:00] VITALS: BP 147/90
== END 2025-04-30 17:52 | disposition home or self-care (01) ==
LOC: ER 12:29
PROVIDERS: Emergency Medicine
DX: N39.0 Urinary tract infection, site not specified (principal); R53.1 Weakness; I10 Essential (primary) hypertension; K21.9 Gastro-esophageal reflux disease without esophagitis; J44.9 Chronic obstructive pulmonary disease, unspecified; F17.210 Nicotine dependence, cigarettes, uncomplicated; Z79.899 Other long term (current) drug therapy; Z88.6 Allergy status to analgesic agent; Z79.51 Long term (current) use of inhaled steroids
CPT/HCPCS: 51701; 70450; 72125; 80053; 81001; 85025; 87077; 87086; 87186; 93005; 93010; 96365; 99285-25; J0696